=== PATIENT | female | born 1950 | race Caucasian/White ===

== ENCOUNTER 2021-01-04 08:38 | Inpatient (IN) ==
--- NOTE | 2020-12-19 14:39 | PAT Medication Instructions ---
Medication Instructions Date of Service December 19, 2020 Home Medications atorvastatin 10 mg PO PM cholecalciferol (vitamin D3) [Vitamin D3] 50 mcg PO QAM cyanocobalamin (vitamin B-12) 2,500 mcg PO QAM lisinopril 10 mg PO QAM metoprolol succinate 50 mg PO QAM multivitamin 1 tab PO QAM acetaminophen [Tylenol Extra Strength] 500 mg PO QID PRN DO NOT take the morning of surgery cholecalciferol (vitamin D3) [Vitamin D3] 50 mcg PO QAM cyanocobalamin (vitamin B-12) 2,500 mcg PO QAM lisinopril 10 mg PO QAM multivitamin 1 tab PO QAM Take morning of surgery With a small sip of water, OTHERWISE NOTHING TO EAT OR DRINK AFTER MIDNIGHT: metoprolol succinate 50 mg PO QAM acetaminophen [Tylenol Extra Strength] 500 mg PO QID PRN (okay to take up to 4 hours prior to surgery if needed) Take evening before surgery atorvastatin 10 mg PO PM acetaminophen [Tylenol Extra Strength] 500 mg PO QID PRN (if needed) Other Notes If you have any questions please call us at [phone] or [phone] or [phone] or [phone]
--- NOTE | 2020-12-21 11:23 | Anesthesiology Consultation ---
Date of Service December 21, 2020 Assessment & Plan (1) Encounter for pre-operative examination: - COVID screening: Per assessment on 12/21: Travel screen negative, no known COVID-19 positive contacts or current COVID-19 related symptoms. Surgeon arrangi ng preop COVID testing. Awaiting results. - PCP office visit: 12/20/20: "Per Revised Cardiac Risk Index for Pre-Operative Risk, patient is Class I Risk and has a 3.9% chance of having a cardiac event within 30 days of surgery. Patient is low risk and pending acceptable labs tomorrow may proceed with surgery." Chart Review Chart Review: Acceptable Risk for Surgery (pending most recent cardiology office visit note) and Patient seen in Pre Admission Testing Teaching & Discussion Pre-Anesthesia Teaching/Discussion Notes: Instructed NPO after midnight before surgery,except medications with 15 cc of water. Medication instructions provided according to the PAT guidelines. History Surgery Operation Date: 01/04/21 07:45 Proposed Procedures p L1-L2 and L4-L5 Decompression, L4-L5 Fusion, Spinal Cord Monitoring - Edilson Fleming DO Height/Weight Height: 5 ft 1 in Weight: 88.451 kg Allergies Allergy/AdvReac Type Severity Reaction Status Date / Time No Known Allergies Allergy Verified 12/03/20 08:55 Medications Home Medications Medication Instructions Recorded Confirmed Last Taken atorvastatin 10 mg PO PM 06/08/20 12/03/20 07/12/20 06:15 cholecalciferol (vitamin D3) 50 mcg PO QAM 06/08/20 12/03/20 07/05/20 [Vitamin D3] cyanocobalamin (vitamin B-12) 2,500 mcg PO QAM 06/08/20 12/03/20 07/05/20 lisinopril 10 mg PO QAM 06/08/20 12/03/20 07/05/20 metoprolol succinate 50 mg PO QAM 06/08/20 12/03/20 07/12/20 06:15 multivitamin 1 tab PO QAM 06/08/20 12/03/20 07/05/20 acetaminophen [Tylenol Extra 500 mg PO QID PRN 09/07/20 12/03/20 Unknown Strength] Past Medical History Medical History Arthritis Hyperlipidemia Hypertension Sleep apnea "mild"/no device Urinary, incontinence, stress female Exercise / Class Metabolic Activity III < 4 Walking/Shop/Light housework (+ walker) Past Family History Family History Mother Family history of diabetes mellitus Past Surgical History Surgical History History of bilateral tubal ligation History of cardiac cath [place] [place] no stents History of carpal tunnel release R/L History of colonoscopy History of hysterectomy + oophorectomy History of surgery on arm right > mass (benign) History of tonsillectomy History of tooth extraction Hx of cholecystectomy Past Anesthesia History No Hx of Anesthesia Complications and No Family Hx of Anesthesia Complications History of PONV No Hx of PONV and Hx of Motion Sickness (occasional) Social History Smoking Status: Never smoker Do You Dip or Chew Tobacco: No Hx Alcohol Use: Yes Alcohol type: hard liquor alcohol intake frequency: holidays/special occasions only Hx Substance Use: No substance use type: does not use Review of Systems Patient denies chest pain, shortness of breath, dyspnea on exertion, joint pain, reflux, cough, wheezing, palpitations. Physical Exam Vital Signs VITALS BP 153/91 P 65 TEMP 98.1 SP02 98%RA RESP 16 PHYSICAL Decreased cervical extension Full TMJ range of motion. TMD 3.5 finger breaths Mallampati Score 3 Dentition: missing molars Lungs: clear throughout to auscultation Cardiac: regular rate and rhythm, no murmurs noted Spine: normal Carotid arteries: negative bruit Extremities: no edema Testing Laboratory Results 12/21/20 11:56 12/21/20 11:56 PT 9.9 Seconds (9.0-12.0) 12/21/20 11:56 INR 1.0 (0.9-1.1) 12/21/20 11:56 APTT 26.6 Seconds (21.0-31.0) 12/21/20 11:56 Urine Color Yellow 12/21/20 11:56 Urine Appearance Clear (Clear) 12/21/20 11:56 Urine pH 5.0 (4.5-7.5) 12/21/20 11:56 Ur Specific [place] 1.011 (1.000-1.030) 12/21/20 11:56 Urine Protein Negative (Negative) 12/21/20 11:56 Urine Glucose (UA) Negative (Negative) 12/21/20 11:56 Urine Ketones Negative (Negative) 12/21/20 11:56 Urine Nitrite Negative (Negative) 12/21/20 11:56 Ur Leukocyte Esterase 1+ (Negative) H 12/21/20 11:56 Urine RBC 0-4 /hpf (0-4) 12/21/20 11:56 Urine WBC 5-10 /hpf (0-5) H 12/21/20 11:56 Ur Epithelial Cells >30 /lpf (0-5) H 12/21/20 11:56 Blood Type A Positive 12/21/20 11:56 Antibody Screen NEGATIVE 12/21/20 11:56 Electrocardiogram Date: 06/12/20 Findings: + NSR @ (73) Chest X-Ray Date: 06/12/20 Findings: + NAD There is bibasilar scarring/atelectasis. Stress Test Date: 02/12/17 Type: exercise Abnormal stress echo consistent with inferior and apical ischemia. 4.4 METS. 99% MPHR. LVEF 70%. Grade I DD. No significant valvular disease. Subsequent cardiac cath done 03/16/17* Cardiac Catheterization Date: 03/16/17 No [place] CAD. No aortic stenosis. Systemic arterial hypertension. Outpatient BP control rec'd.
[2020-12-21 12:23] LABS: Basophils # (auto) 0.04 K/uL (0-0.2); Basophils % (auto) 0.5 %; Eosinophils # (auto) 0.09 K/uL (0-0.5); Eosinophils % (auto) 1.2 %; Hematocrit (blood only) 41.3 % (37-47); Hemoglobin 14.2 g/dL (12.0-16.0); Immature Granulocytes # (auto) 0.01 K/uL (0.00-0.02); Immature Granulocytes % (auto) 0.1 %; Lymphocytes # (auto) 1.25 K/uL (1.2-3.4); Lymphocytes % (auto) 16.4 %; Mean Corpuscular Hemoglobin 31.1 pg (25-34); Mean Corpuscular Hgb Conc 34.4 g/dL (32-36); Mean Corpuscular Volume 90.4 fL (80-100); Mean Platelet Volume 10.5 fL (7.4-10.4); Monocytes # (auto) 0.71 K/uL (0.11-0.59); Monocytes % (auto) 9.3 %; Neutrophils % (auto) 72.5 %; Platelet Count 276 K/uL (130-400); RDW Coefficient of Variation 14.1 % (11.5-14.5); RDW Standard Deviation 46.8 fL (36.4-46.3); Red Blood Count 4.57 M/uL (4.2-5.4)
[2020-12-21 12:26] LABS: Appearance Urine Clear (Clear); Bilirubin Urine Negative (Negative); Blood Urine Negative (Negative); Color Urine Yellow; Glucose Urine UA Negative (Negative); Ketones Urine Negative (Negative); Leukocyte Esterase Urine 1+ (Negative); Nitrite Urine Negative (Negative); Protein Urine Negative (Negative); Specific Gravity Urine 1.011 (1.000-1.030); Urobilinogen Urine Negative (Negative)
[2020-12-21 12:36] LABS: Partial Thromboplastin Time 26.6 Seconds (21.0-31.0); Prothrombin Time 9.9 Seconds (9.0-12.0)
[2020-12-21 12:42] LABS: BUN Creatinine Ratio 24.6 (10-20); Calcium 9.5 mg/dl (8.5-10.1); Creatinine Clr Calc Pharmacy 49.4 ml/min; Est GFR (African American) 62.2; Est GFR (Non-African American) 53.6; Potassium 3.8 mmol/L (3.5-5.1)
[2020-12-21 13:49] LABS: Epithelial Cell Urine >30 /lpf (0-5)
[2020-12-21 13:50] LABS: Bacteria Urine 1+ (Negative); RBC Urine 0-4 /hpf (0-4)
[~2021-01-04 08:38] MED LIST: ACETAMINOPHEN 500 MG TAB PO SCH; CeleBREX 200 MG CAP PO SCH; GLYCOPYRROLATE 0.2 MG/ML VIAL ONE; LIDOCAINE HCL 2% 2 ML VIAL/AMP(20MG/ML) INFIL ONE; LR 15ML/HR IV SCH; MIDAZOLAM HCL 1 MG/ML 2ML VIAL ONE; NEOSTIGMINE METHYLSULFATE 1 MG/ML 10ML VIAL ONE; ONDANSETRON INJ 2 MG/ML 2 ML VIAL ONE; PROPOFOL IV EMULSION 10 MG/ML 20 ML VIAL IV ONE; ROCURONIUM BROMIDE 10 MG/ML 5 ML VIAL IV ONE; SUCCINYLCHOLINE 100MG/5ML SYR IV ONE; ceFAZolin 2000MG 2,000 MG/15 ML SYR IV SCH; fentaNYL citrate 100 MCG/2 ML VIAL ONE
[2021-01-04] MEDS ORDERED: GABAPENTIN 300 MG CAP ONE (08:58)
[2021-01-04] MEDS ORDERED: LABETALOL HCL IV 5 MG/ML 20ML IV PRN (09:44)
[2021-01-04] MEDS ORDERED: ePHEDrine sulfate 50 MG/ML AMP IV PRN (09:44)
[2021-01-04] MEDS ORDERED: PHENYLEPHRINE 100MCG/ML 5ML SYR IV PRN (09:44)
[2021-01-04] MEDS ORDERED: HYDROmorphone INJ 1 MG/ML SYRINGE IV PRN ×2 (09:44→14:20)
[2021-01-04] MEDS ORDERED: ATROPINE SULFATE 0.1 MG/ML 10ML SYR IV PRN (09:44)
[2021-01-04] MEDS ORDERED: fentaNYL citrate 100 MCG/2 ML VIAL IV PRN (09:44)
[2021-01-04] MEDS ORDERED: ONDANSETRON INJ 2 MG/ML 2 ML VIAL IV PRN ×2 (09:44→14:20)
[2021-01-04] MEDS ORDERED: MEPERIDINE HCL 25 MG/ML CARP/VIAL IV PRN (09:44)
--- NOTE | 2021-01-04 09:47 | History & Physical Report ---
Date of Service January 04, 2021 Assessment & Plan (1) Neurogenic claudication due to lumbar spinal stenosis: Admission and Anticipated Discharge Date Admission Date: L1-L2 and L4-L5 decompression, L4-L5 fusion History of Present Illness Chief Complaint: Back and bilateral leg pain Primary Care Provider: Chiquita Emmanuel PA-C This is a 71-year-old female presents with chronic persistent back and bilateral leg pain. Failing course of nonoperative care is here for surgical invention. Allergies Allergy/AdvReac Type Severity Reaction Status Date / Time No Known Allergies Allergy Verified 01/04/21 09:11 Home Medications Medication Instructions Recorded Confirmed Type atorvastatin 10 mg PO PM 06/08/20 01/04/21 History cholecalciferol (vitamin D3) 50 mcg PO QAM 06/08/20 01/04/21 History [Vitamin D3] cyanocobalamin (vitamin B-12) 2,500 mcg PO QAM 06/08/20 01/04/21 History lisinopril 10 mg PO QAM 06/08/20 01/04/21 History metoprolol succinate 50 mg PO QAM 06/08/20 01/04/21 History multivitamin 1 tab PO QAM 06/08/20 01/04/21 History acetaminophen [Tylenol Extra 500 mg PO QID PRN 09/07/20 01/04/21 History Strength] Past Med/Surg History Medical History (Updated 01/04/21 @ 09:47 by Edilson Fleming DO) Arthritis Hyperlipidemia Hypertension Obesity Sleep apnea "mild"/no device Urinary, incontinence, stress female Surgical History History of bilateral tubal ligation History of cardiac cath 2016 ([facility] – [place] > no stents History of carpal tunnel release R/L History of colonoscopy History of hysterectomy + oophorectomy History of surgery on arm right > mass (benign) History of tonsillectomy History of tooth extraction Hx of cholecystectomy Family History Mother Family history of diabetes mellitus Social History Smoking Status: Never smoker Second Hand Exposure: Yes (sister smokes); Do You Dip or Chew Tobacco: No; Tobacco Cessation Education Requested by Patient: No Hx Alcohol Use: Yes Alcohol type: hard liquor Hx Substance Use: No Preferred Language: Liberian Communication Ability: Effective Centerless Grinder Tender Required: No Beliefs That Will Affect Care: None Current Living Situation: Family Current Living Situation Comment: SISTER LIVES W PT Other Information That Helps Us Care for You: No Feels Safe at Home: Yes Safety Concerns: Feels Safe At This Time Assistive Devices: Glasses and Walker Physical Exam Physical Exam: Patient is alert and oriented Heart regular in rhythm Lungs clear to auscultation Results & Data ([facility]) Vital Signs (Past 12 Hours) Vital Signs Temp Pulse Resp BP Pulse Ox 01/04/21 09:24 37.1 C 88 20 137/85 96
--- NOTE | 2021-01-04 09:47 | History & Physical Bridge Note ---
Date of Service January 04, 2021 History & Physical Bridge Note I have examined the patient, reviewed the History & Physical and in the interval since the performance of the History & Physical I have noted the following changes of clinical significance: no changes noted
[2021-01-04] MEDS ORDERED: BACITRACIN INJ 50,000 UNIT VIAL ONE (10:01)
[2021-01-04] MEDS ORDERED: BUPIVACAINE/EPINEPHRINE 0.5% MPF 1:200,000 30 ML VIAL ONE (10:01)
[2021-01-04] MEDS ORDERED: PHENYLEPHRINE 100MCG/ML 5ML SYR ONE (10:50)
[2021-01-04] MEDS ORDERED: DEXAMETHASONE SOD INJ 4 MG/ML VIAL ONE (10:50)
[2021-01-04] MEDS ORDERED: fentaNYL citrate 100 MCG/2 ML VIAL ONE ×2 (11:07→12:45)
[2021-01-04] MEDS ORDERED: FLOSEAL HEMOSTATIC MATRIX 10ML TOP ONE (11:24)
--- NOTE | 2021-01-04 12:36 | Operative Report ---
Post Operative Report Pre & Post Diagnosis Operation Date: 01/04/21 10:10 Pre-Op Diagnosis: Spinal Stenosis, Lumbar Region with Neurogenic claudication Post-Op Diagnosis: Spinal Stenosis, Lumbar Region with Neurogenic claudication I identified the patient and participated in the time-out.: Yes Procedure Operation Date: 01/04/21 10:10 Actual Procedures #1 Lumbar decompression with bilateral medial facetectomies and foraminotomies L1-L2, L3-L4 and L4-L5. #2 posterior spinal fusion L4-L5 per #3 placed posterior instrumentation L4-L5 per #4 interbody fusion L4-L5. #5 placement peek cage 10 x 22 mm at L4-L5. #6 placement locally harvested morselized autograft in the posterior lateral gutters. #7 placement infuse collagen sponge, master graft in the posterior lateral gutters and I factor interbody space. Surgeon Edilson Fleming, DO Academic Assistant Ger River Estimated Blood Loss 200 Findings Consistent with Post-Op Diagnosis The patient is 5 foot 1 inches tall weighing over 87 kg with a BMI in excess of 36. The patient's body mass did add significant technical difficulty requiring her deepest retractors longus instruments in order to perform her procedure. This had at least 50% increase to the operative time. Specimens None Indications This is a 71-year-old female who presents with above-mentioned diagnosis after failing stents course of nonoperative care she is here for surgical invention. Description of Procedure Patient was met with identified informed consent obtained. Patient was then taken to the operative suite underwent ablation placed in prone position the Paulo table total spine frame. All bony prominences well-padded eyes inspected to ensure no external pressure placed upon the bed at this point lumbar spine was prepped and draped in a sterile fashion. Sharp dissection with the assistance pericardial performed down to and exposing the lamina and interlaminar space at L1-L2 as well as the lamina and transverse processes of L4 and L5 bilaterally. From caudal cephalad fashion complete laminectomy of L4 pa rtial laminectomy L3 was performed including bilateral medial facetectomies and foraminotomies addressing severe spinal stenosis. Pedicle screws then placed in L4 and L5 bilaterally with assistance of fluoroscopy the proper sized mercedes placed and locked. By way of a transforaminal approach on the left complete discectomy of L4-L5 was performed endplates curetted to subcortical bleeding bone and a 10 x 22 mm peek cage filled with I factor tapped in position. I then proceeded to L1-L2 level. A complete laminectomy of L1 was performed occluding bilateral medial facetectomies foraminotomies addressing severe spinal stenosis. The incisions were then copiously irrigated. The transverse processes of L4 and L5 burred to subcortical bleeding bone. Local autograft combined with infuse and master graft was placed in the posterior gutters. 15 round ELEN drain inserted. The incision was then closed with 1 Vicryl to fascia 2-0 Vicryl subcutaneous and 4 Monocryl for final skin closure. Steri-Strip sterile dressings placed. Please note spinal cord monitoring was utilized at the procedure no changes noted. Lastly Ger River was present at the entire surgery involved the patient positioning complex portions of the surgery and final skin closure. I attest to the content of the Intraoperative Record and any orders documented therein. Any exceptions are noted below.
--- NOTE | 2021-01-04 12:42 | Fluoroscopy Report ---
FL lumbar spine 2-3V CLINICAL HISTORY: L1-L2 L4-L5 DECOMPRESSION L4-L5 FUSION COMPARISON STUDY: None. FLUOROSCOPY TIME: 27 seconds. FLUOROSCOPIC IMAGES: 2 FINDINGS: Fluoroscopy was provided during L4-L5 discectomy with interbody spacer placement. Posterior decompression is noted. There are bilateral pedicle screws at the L4 and L5 levels. IMPRESSION: Fluoroscopy provided during multilevel posterior decompression and L4-L5 discectomy and bilateral pedicle screw fusion. ACT 112: Negative or not required by law. Electronically signed by: Ran Salomon M.D. 01/04/2021 12:41 PM
[2021-01-04] MEDS ORDERED: KETOROLAC 30 MG/ML VIAL ONE (12:47)
--- NOTE | 2021-01-04 13:36 | Anesthesiology Progress Note ---
Date of Service January 04, 2021 Anesthesia Post Procedure Vital Signs Vital Signs: Temp Pulse Pulse Resp BP Pulse Ox 01/04/21 13:20 61 14 142/79 H 94 01/04/21 13:10 60 12 128/75 94 01/04/21 13:02 36.3 C L 88 22 143/83 H 97 01/04/21 09:24 37.1 C 88 20 137/85 96 Transfer of Care Handoff Completed per policy Notes Mental Status: alert / awake / arousable Patient Amnestic to Procedure: Yes Nausea / Vomiting: adequately controlled Pain: adequately controlled Airway Patency, RR, SpO2: stable & adequate BP & HR: stable & adequate Hydration State: stable & adequate Anesthetic Complications: no major complications apparent and Pt Satisfied with anesthetic care
[2021-01-04] MEDS ORDERED: hydrOXYzine HCl 25 MG TAB PO PRN (14:20)
[2021-01-04] MEDS ORDERED: MAGNESIUM HYDROXIDE SUSP 30 ML UDC PO PRN (14:20)
[2021-01-04] MEDS ORDERED: ACETAMINOPHEN 1,000 MG/100 ML VIAL IV PRN (14:20)
[2021-01-04] MEDS ORDERED: DO NOT ADMINISTER FLU VACCINE PRN (14:20)
[2021-01-04] MEDS ORDERED: LORazepam 0.5 MG TAB PO PRN (14:20)
[2021-01-04] MEDS ORDERED: SOD PHOSPHATE/SOD BIPHOSPHATE ENEMA 132 ML BTL PR PRN (14:20)
[2021-01-04] MEDS ORDERED: FAMOTIDINE 20 MG TAB PO PRN (14:20)
[2021-01-04] MEDS ORDERED: DO NOT ADMINISTER PNEUMOCOCCAL VACCINE PRN (14:20)
[2021-01-04] MEDS ORDERED: NALOXONE HCL 0.4 MG/1 ML VIAL/CARP IV PRN (14:20)
[2021-01-04] MEDS ORDERED: traMADol HCL 50 MG TABLET PO PRN (14:20)
[2021-01-04] MEDS ORDERED: LORazepam 0.5 MG/1 ML VIAL IV PRN (14:20)
[2021-01-04] MEDS ORDERED: METOCLOPRAMIDE HCL INJ 5 MG/ML 2 ML VIAL IV PRN (14:20)
[2021-01-04] MEDS ORDERED: diphenhydrAMINE Capsule 25 MG CAP PO PRN (14:20)
[2021-01-04] MEDS ORDERED: HYDROmorphone INJ 0.5 MG/0.5 ML SYR IV PRN (14:20)
[2021-01-04] MEDS ORDERED: ONDANSETRON 4 MG OD TAB PO PRN (14:20)
[2021-01-04] MEDS ORDERED: ALUMINUM/MAGNESIUM SUSP 30 ML UDC PO PRN (14:20)
[2021-01-04] MEDS ORDERED: PROMETHAZINE HCL 12.5 MG in SODIUM CHLORIDE 0.9% 50 ML IV PRN (14:20)
[2021-01-04] MEDS ORDERED: bisacodyL 10 MG SUPP PR PRN (14:20)
--- NOTE | 2021-01-04 14:47 | Hospitalist Consultation ---
Date of Consultation January 04, 2021 Assessment & Plan (1) S/P spinal surgery: This is a 71yo F with a PMH of HTN, dyslipidemia, mild SILVIA not on CPAP, history of sacral wound and other medical problems listed below who is POD#0 s/p lumbar decompression L1-L2, L3-L4 and L4-L5 and fusion L4-L5 by Dr. Fleming. POD#0 s/p lumbar decompression L1-L2, L3-L4 and L4-L5 and fusion L4-L5 by Dr. Fleming Pt is doing well post-operatively Per ortho for pain control, wound care, anticoagulation and activities Monitor H&H (pre-op hgb 14.2, EBL 300 ml, ELEN output 65ml to date) Continue incentive spirometry, PT/OT when appropriate (2) Hypertension: Normotensive. Continue metoprolol succinate with hold parameters. Holding lisinopril until BMP in AM (3) Hyperlipidemia: Continue statin (4) Sacral wound: History of sacral wound present prior to admission; recently released from wound care Sacral area erythematous on exam today with small excoriated area- no drainage. Wound care consult (5) Sleep apnea: Does not use CPAP. Continuous pulse ox, supplemental O2 PRN PCP: Amari Hutchison Dispo: Per primary service Patient seen in collaboration with Dr. Drew. Please see addendum. Supervising Physician Co-Signing Physician Notes Patient is a 71-year-old female with history of hypertension, dyslipidemia, obstructive sleep apnea and other medical problems was seen and examined postop after having lumbar decompression, fusion surgery by Dr. Fleming for lumbar spinal stenosis with neurogenic claudication. Patient had transient dizziness associated with nausea postop but later improved with antiemetics. She denies any chest pain, shortness of breath, abdominal pain. Pain at surgical site is controlled. On exam patient is obese, no apparent distress, normocephalic atraumatic, lungs are clear to auscultation, normal breath sounds, S1-S2, no murmur, no pedal edema, abdomen soft, nontender, normal bowel sounds, back--surgical site in dressing,+ drain, alert, awake, oriented, grossly no focal neural deficits. Lumbar decompression, fusion surgery POD#0. Continue incentive spirometry, monitor CBC for postop anemia. Continue bowel regimen, PT OT as able. Activity, wound care, disposition as per primary team. Agree with consulting wound care nurse for sacral wound management. Continue home medications for hypertension. Blood pressure stable. I personally reviewed the record. Patient is interviewed and examined at bedside. Patient's care is coordinated with Sonam Zuniga PA-C. Please refer to the documentation above for details of patient's presentation and for discussion of other issues. History of Present Illness Reason for Consultation: post op med mgmt Attending Physician: Edilson Fleming DO History of Present Illness This is a 71yo F with a PMH of HTN, dyslipidemia, mild SILVIA not on CPAP, history of sacral wound and other medical problems listed below who is POD#0 s/p lumbar decompression L1-L2, L3-L4 and L4-L5 and fusion L4-L5 by Dr. Fleming. Feeling sandoval seated after surgery but improved after drinking some broth. No vomiting. Nurse getting antiemetic. Minimal surgical site discomfort. No pain or paresthesias in bilateral lower extremities. History of sacral wound but recently released from wound care. Denies any drainage, pain, fever or chills. Transient dizziness following surgery but not currently. No chest pain, palpitations, SOB, abdominal pain, dysuria, diarrhea or constipation. Allergies Allergy/AdvReac Type Severity Reaction Status Date / Time No Known Allergies Allergy Verified 01/04/21 09:11 Home Medications Medication Instructions Recorded Confirmed Type atorvastatin 10 mg PO PM 06/08/20 01/04/21 History cholecalciferol (vitamin D3) 50 mcg PO QAM 06/08/20 01/04/21 History [Vitamin D3] cyanocobalamin (vitamin B-12) 2,500 mcg PO QAM 06/08/20 01/04/21 History lisinopril 10 mg PO QAM 06/08/20 01/04/21 History metoprolol succinate 50 mg PO QAM 06/08/20 01/04/21 History multivitamin 1 tab PO QAM 06/08/20 01/04/21 History acetaminophen [Tylenol Extra 500 mg PO QID PRN 09/07/20 01/04/21 History Strength] Patient History Medical History (Updated 01/04/21 @ 15:31 by Sonam Zuniga PA-C) Arthritis Hyperlipidemia Hypertension Obesity Sleep apnea "mild"/no device Urinary, incontinence, stress female Surgical History (Updated 01/04/21 @ 15:31 by Sonam Zuniga PA-C) History of bilateral tubal ligation History of cardiac cath 2017 ([facility] [place] > no stents History of carpal tunnel release R/L History of colonoscopy History of hysterectomy + oophorectomy History of surgery on arm right > mass (benign) History of tonsillectomy History of tooth extraction Hx of cholecystectomy Family History (Updated 01/04/21 @ 14:55 by Sonam Zuniga PA-C) Mother Family history of diabetes mellitus Other Heart disease Social History Smoking Status: Never smoker Second Hand Exposure: Yes (sister smokes); Do You Dip or Chew Tobacco: No; Tobacco Cessation Education Requested by Patient: No Hx Alcohol Use: Yes Alcohol type: hard liquor Hx Substance Use: No Preferred Language: Tajik Communication Ability: Effective Shank Cutter Required: No Beliefs That Will Affect Care: None Current Living Situation: Family Current Living Situation Comment: SISTER LIVES W PT Other Information That Helps Us Care for You: No Feels Safe at Home: Yes Safety Concerns: Feels Safe At This Time Assistive Devices: Glasses and Walker Review of Systems Review of Systems: At least ten systems reviewed and negative except as noted in the HPI. Physical Exam Physical Exam: General Appearance: WD/WN, vitals as above, NAD, sitting up in bed, pleasant, conversing easily Head: normocephalic, atraumatic Eyes: normal inspection, PERRL, conjunctivae normal, anicteric sclerae ENT: external ear and nose normal, oropharynx normal Neck: normal visual inspection, trachea midline, no thyromegaly Respiratory: normal respiratory effort, lungs clear to auscultation, no wheeze, rales, rhonchi. No accessory muscle use Cardiovascular: regular rate, rhythm, no murmur, normal peripheral pulses, no BLE edema Abdomen/GI: normal bowel sounds, soft, nontender, no hepatosplenomegaly Extremities/Musculoskeletal: +Lumbosacral surgical dressing c/d/i. Drain visualized. No cyanosis or clubbing, extremities motor strength 5/5 Neurologic: PERRL, no dysarthria, CN's II-XI intact bilaterally and moves all extremities Psychiatric: A+Ox3, euthymic affect Skin: no rashes, normal color, warm/dry. + Erythema and small area of excoriation above sacrum. No drainage Results & Data Results & Data ([facility]) Vital Signs (Past 12 Hours) Vital Signs Temp Pulse Pulse Resp BP Pulse Ox 01/04/21 14:39 36.6 C 58 L 16 111/71 95 01/04/21 14:00 59 L 17 117/67 94 01/04/21 13:50 36.8 C 62 15 150/80 H 95 01/04/21 13:40 61 12 131/76 94 01/04/21 13:30 60 12 138/75 94 01/04/21 13:20 61 14 142/79 H 94 01/04/21 13:10 60 12 128/75 94 01/04/21 13:02 36.3 C L 88 22 143/83 H 97 01/04/21 09:24 37.1 C 88 20 137/85 96 Laboratory Results Pertinent pre-op labs (12/21/20): WBC 7.60 HGB 14.2 PLT 276 CR 1.04 GFR 53.6
[2021-01-04] MEDS: SODIUM CHLORIDE 0.9% 1000ML 1,000 ML IV SCH (15:31)
[2021-01-04 16:32] LABS: Appearance Urine Cloudy (Clear); Bacteria Urine Automated Negative (Negative); Blood Urine Negative (Negative); Color Urine Orange; Epithelial Cell Urine Auto 20-30 /lpf (0-5); Glucose Urine UA Negative (Negative); Ketones Urine Trace (Negative); Leukocyte Esterase Urine Negative (Negative); Nitrite Urine Positive (Negative); Protein Urine Negative (Negative); RBC Urine Automated 0-4 /hpf (0-4); Specific Gravity Urine 1.022 (1.000-1.030); Urobilinogen Urine Negative (Negative)
[2021-01-04 16:35] LABS: Bilirubin Urine 1+ (Negative)
[2021-01-04 16:50] LABS: Uric Acid Crystals Urine Present (None Prsent)
[2021-01-04] MEDS: ceFAZolin 2000MG 2,000 MG/15 ML SYR IV SCH (18:20)
[2021-01-04] MEDS: ATORVASTATIN 10 MG TAB PO SCH (20:35)
[2021-01-04] MEDS: DOCUSATE SODIUM/SENNA 50/8.6MG TAB PO SCH (20:36)
[2021-01-05] MEDS: SODIUM CHLORIDE 0.9% 1000ML 1,000 ML IV SCH (01:21)
[2021-01-05] MEDS: ceFAZolin 2000MG 2,000 MG/15 ML SYR IV SCH (01:21)
[2021-01-05] MEDS: POLYETHYLENE (MIRALAX) 17 GM PACK PO SCH ×3 (06:01→17:23)
[2021-01-05 06:50] LABS: Basophils # (auto) 0.02 K/uL (0-0.2); Basophils % (auto) 0.1 %; Eosinophils # (auto) 0.01 K/uL (0-0.5); Eosinophils % (auto) 0.1 %; Hematocrit (blood only) 37.2 % (37-47); Hemoglobin 12.7 g/dL (12.0-16.0); Immature Granulocytes # (auto) 0.05 K/uL (0.00-0.02); Immature Granulocytes % (auto) 0.3 %; Lymphocytes # (auto) 1.16 K/uL (1.2-3.4); Lymphocytes % (auto) 6.3 %; Mean Corpuscular Hemoglobin 30.9 pg (25-34); Mean Corpuscular Hgb Conc 34.1 g/dL (32-36); Mean Corpuscular Volume 90.5 fL (80-100); Monocytes % (auto) 8.7 %; Neutrophils # (auto) 15.57 K/uL (1.4-6.5); Neutrophils % (auto) 84.5 %; Platelet Count 266 K/uL (130-400); RDW Coefficient of Variation 13.6 % (11.5-14.5); RDW Standard Deviation 45.4 fL (36.4-46.3); Red Blood Count 4.11 M/uL (4.2-5.4); White Blood Count 18.41 K/uL (4.8-10.8)
[2021-01-05 07:16] LABS: BUN Creatinine Ratio 20.9 (10-20); Calcium 8.3 mg/dl (8.5-10.1); Creatinine Clr Calc Pharmacy 47.6 ml/min; Est GFR (African American) 60.3; Potassium 3.7 mmol/L (3.5-5.1)
--- NOTE | 2021-01-05 08:17 | Orthopedic Progress Note ---
Date of Service January 05, 2021 Assessment & Plan (1) Neurogenic claudication due to lumbar spinal stenosis: Patient is doing well postoperative day 1 status post lumbar fusion. We will start physical therapy today. Continue with pain control. Maintain ELEN drain and dressing. DVT prophylaxis is in the form of teds and SCDs. Admission and Anticipated Discharge Date Admission Date: January 04, 2021 Supervising Physician Co-Signing Physician Notes Dr. Edilson Fleming Subjective Patient is postoperative day 1 decompression L1-2, L3-4, L4-5 with instrumented fusion of L4-5. She had an uneventful evening. ELEN drain output last shift was 40 cc. H&H is morning are 12.7 and 37.2 respectively. Denies radicular leg pain. Back pain controlled. No other complaints. Review of Systems Review of Systems: All systems reviewed & are unremarkable except as noted in HPI & below Physical Exam Physical Exam: Alert and oriented x3. No acute distress. Lumbar dressing is clean dry and intact. Strength is 5 5 bilateral EHL, dorsiflexion, plantarflexion, quadriceps, hamstrings Calves soft nontender bilaterally. ROD hose and SCDs intact. Constitutional: WD/WN, vitals as above Eyes: normal visual jarrett by confrontation ENMT: external ear and nose normal, oropharynx normal Neck: normal visual inspection Respiratory: normal respiratory effort Cardiovascular: Extremities: normal capillary refill Chest (Breasts): Chest: normal inspection of chest Gastrointestinal (Abdomen): Inspection/Auscultation: abdomen normal to inspection Musculoskeletal: Extremities: extremities normal to inspection and strength 5/5 throughout Skin: no rashes, warm and dry Neurologic: normal touch/pain/proprioception and moves all extremities Psychiatric: A+Ox3, euthymic affect Results & Data ([facility]) Vital Signs (Past 12 Hours) Vital Signs Temp Pulse Resp BP Pulse Ox 01/05/21 07:04 36.7 C 71 18 102/62 93 01/05/21 03:47 36.6 C 63 16 105/64 95 01/04/21 22:31 36.9 C 64 16 102/65 94
[2021-01-05] MEDS: METOPROLOL SUCC 50MG EXT REL TAB PO SCH (09:25)
[2021-01-05] MEDS: MULTIVITAMIN TAB PO SCH (09:25)
[2021-01-05] MEDS: CHOLECALCIFEROL 1,000 UNITS 25 MCG TAB PO SCH (09:25)
[2021-01-05] MEDS: CYANOCOBALAMIN (VITAMIN B-12) 2,500 MCG TAB.SUBL SL SCH (09:26)
[2021-01-05] MEDS: DOCUSATE SODIUM/SENNA 50/8.6MG TAB PO SCH (20:01)
[2021-01-05] MEDS: ATORVASTATIN 10 MG TAB PO SCH (20:03)
[2021-01-05] MEDS: ACETAMINOPHEN 500 MG TAB PO PRN (20:03)
[2021-01-06] MEDS: oxyCODONE HCL IR 5 MG TAB (IMMEDIATE RELEASE) PO PRN (04:45)
[2021-01-06 08:27] LABS: Basophils # (auto) 0.03 K/uL (0-0.2); Basophils % (auto) 0.2 %; Eosinophils # (auto) 0.13 K/uL (0-0.5); Eosinophils % (auto) 0.9 %; Hematocrit (blood only) 36.1 % (37-47); Hemoglobin 12.5 g/dL (12.0-16.0); Immature Granulocytes # (auto) 0.03 K/uL (0.00-0.02); Immature Granulocytes % (auto) 0.2 %; Lymphocytes # (auto) 1.19 K/uL (1.2-3.4); Lymphocytes % (auto) 8.5 %; Mean Corpuscular Hemoglobin 31.6 pg (25-34); Mean Corpuscular Hgb Conc 34.6 g/dL (32-36); Mean Corpuscular Volume 91.2 fL (80-100); Mean Platelet Volume 10.7 fL (7.4-10.4); Monocytes # (auto) 1.14 K/uL (0.11-0.59); Monocytes % (auto) 8.1 %; Neutrophils # (auto) 11.49 K/uL (1.4-6.5); Neutrophils % (auto) 82.1 %; Platelet Count 269 K/uL (130-400); RDW Coefficient of Variation 13.6 % (11.5-14.5); RDW Standard Deviation 45.3 fL (36.4-46.3); Red Blood Count 3.96 M/uL (4.2-5.4); White Blood Count 14.01 K/uL (4.8-10.8)
[2021-01-06] MEDS: MULTIVITAMIN TAB PO SCH (08:40)
[2021-01-06] MEDS: CYANOCOBALAMIN (VITAMIN B-12) 2,500 MCG TAB.SUBL SL SCH (08:40)
[2021-01-06] MEDS: CHOLECALCIFEROL 1,000 UNITS 25 MCG TAB PO SCH (08:40)
[2021-01-06] MEDS: METOPROLOL SUCC 50MG EXT REL TAB PO SCH (08:41)
--- NOTE | 2021-01-06 09:34 | Orthopedic Progress Note ---
Date of Service January 06, 2021 Assessment & Plan (1) Neurogenic claudication due to lumbar spinal stenosis: She is doing well making progress. We will continue with physical therapy today. Maintain ELNE drain. Continue with pain control. DVT prophylaxis is in the form of teds and SCDs. Hopefully be able to discharge to rehab facility within next 24 to 48 hours. Admission and Anticipated Discharge Date Admission Date: January 04, 2021 Supervising Physician Co-Signing Physician Notes Dr. Edilson Fleming Subjective Patient is postoperative day 2. She is doing well. She is had a bowel movement. Back pain is controlled. Denies radicular leg pain. ELEN drain output last shift was 30 cc. Yesterday in physical therapy she was ambulating roughly 40 feet. She is hoping to be discharged to rehab center within the next 24 to 48 hours. Review of Systems Review of Systems: All systems reviewed & are unremarkable except as noted in HPI & below Physical Exam Physical Exam: Alert and oriented x3. Sitting in a chair in no acute distress. Lumbar dressing is clean dry and intact. ELEN drain is intact and functioning. Calf soft nontender bilaterally. Strength is 5 5 bilateral EHL, dorsiflexion, plantarflexion, quadriceps, hamstrings. Constitutional: WD/WN, vitals as above Eyes: normal visual jarrett by confrontation ENMT: external ear and nose normal, oropharynx normal Neck: normal visual inspection Respiratory: normal respiratory effort Cardiovascular: Extremities: normal capillary refill Chest (Breasts): Chest: normal inspection of chest Gastrointestinal (Abdomen): Inspection/Auscultation: abdomen normal to inspection Musculoskeletal: Extremities: extremities normal to inspection and strength 5/5 throughout Skin: no rashes, warm and dry Neurologic: normal touch/pain/proprioception and moves all extremities Psychiatric: A+Ox3, euthymic affect Results & Data ([facility]) Vital Signs (Past 12 Hours) Vital Signs Temp Pulse Resp BP Pulse Ox 01/06/21 08:39 89 125/67 01/06/21 07:31 37.3 C 77 17 143/78 H 90 01/05/21 23:09 36.9 C 77 16 132/72 93
--- NOTE | 2021-01-06 12:29 | Hospitalist Progress Note ---
Date of Service January 06, 2021 This is a bill for 01/05/2021 Assessment & Plan (1) S/P spinal surgery: This is a 71yo F with a PMH of HTN, dyslipidemia, mild SILVIA not on CPAP, history of sacral wound and other medical problems listed below who is POD#0 s/p lumbar decompression L1-L2, L3-L4 and L4-L5 and fusion L4-L5 by Dr. Fleming. POD#1 s/p lumbar decompression L1-L2, L3-L4 and L4-L5 and fusion L4-L5 by Dr. Fleming Pt is doing well post-operatively Per ortho for pain control, wound care, anticoagulation and activities Monitor H&H (pre-op hgb 14.2, EBL 300 ml, ELEN output 65ml to date) Continue incentive spirometry, PT/OT when appropriate Hemoglobin remains stable at 12.7 (2) Hypertension: Normotensive. Continue metoprolol succinate with hold parameters. Holding lisinopril until BMP in AM Blood pressure extrapleural (3) Hyperlipidemia: Continue statin (4) Sacral wound: History of sacral wound present prior to admission; recently released from wound care Sacral area erythematous on exam today with small excoriated area- no drainage. Wound care consult (5) Sleep apnea: Does not use CPAP. Continuous pulse ox, supplemental O2 PRN PCP: Amari Hutchison Dispo: Per primary service Admission and Anticipated Discharge Date Admission Date: January 04, 2021 Subjective 01/05/2021 The patient was seen and examined in medical floor She has been stable following surgery Minimal back pain but no other significant symptoms Review of Systems Review of Systems: All systems reviewed and are unremarkable except as noted below Physical Exam Physical Exam: Lying in bed comfortably Constitutional: well developed and well nourished; not ill appearing Eyes: PERRL, conjunctivae normal, anicteric sclerae ENMT: external ear and nose normal, oropharynx normal Neck: trachea midline, no thyromegaly Respiratory: no respiratory distress Auscultation: lungs clear to auscultation bilaterally Cardiovascular: Rate/Rhythm: regular rate and regular rhythm Heart Sounds: no murmur Extremities: no edema Gastrointestinal (Abdomen): Inspection/Auscultation: normal bowel sounds; abdomen not distended Percussion/Palpation: abdomen soft; abdomen nontender Musculoskeletal: No acute arthritis in any joint Neurologic: Alert, awake and oriented x3 Results & Data Results & Data ([facility]) Vital Signs (Past 12 Hours) Vital Signs Temp Pulse Resp BP Pulse Ox 01/06/21 08:39 89 125/67 01/06/21 07:31 37.3 C 77 17 143/78 H 90
--- NOTE | 2021-01-06 12:32 | Hospitalist Progress Note ---
Date of Service January 06, 2021 Assessment & Plan (1) S/P spinal surgery: This is a 71yo F with a PMH of HTN, dyslipidemia, mild SILVIA not on CPAP, history of sacral wound and other medical problems listed below who is POD#0 s/p lumbar decompression L1-L2, L3-L4 and L4-L5 and fusion L4-L5 by Dr. Fleming. POD#2 s/p lumbar decompression L1-L2, L3-L4 and L4-L5 and fusion L4-L5 by Dr. Fleming Pt is doing well post-operatively Per ortho for pain control, wound care, anticoagulation and activities Monitor H&H (pre-op hgb 14.2, EBL 300 ml, ELEN output 65ml to date) Continue incentive spirometry, PT/OT when appropriate Hemoglobin remains stable at 12.5 Medically stable (2) Hypertension: Normotensive. Continue metoprolol succinate with hold parameters. Holding lisinopril until BMP in AM Blood pressure extrapleural (3) Hyperlipidemia: Continue statin (4) Sacral wound: History of sacral wound present prior to admission; recently released from wound care Sacral area erythematous on exam today with small excoriated area- no drainage. Wound care consult (5) Sleep apnea: Does not use CPAP. Continuous pulse ox, supplemental O2 PRN PCP: Amari Hutchison Dispo: Per primary service Admission and Anticipated Discharge Date Admission Date: January 04, 2021 Subjective 01/05/2021 The patient was seen and examined in medical floor She has been stable following surgery Minimal back pain but no other significant symptoms 01/06/2021 The patient was seen and examined in medical floor She has been feeling much better today with minimal pain at the back and left thigh Denies any other significant symptoms Review of Systems Review of Systems: All systems reviewed and are unremarkable except as noted below Physical Exam Physical Exam: Sitting on a chair without any acute distress Constitutional: well developed and well nourished; not ill appearing Eyes: PERRL, conjunctivae normal, anicteric sclerae ENMT: external ear and nose normal, oropharynx normal Neck: trachea midline, no thyromegaly Respiratory: no respiratory distress Auscultation: lungs clear to auscultation bilaterally Cardiovascular: Rate/Rhythm: regular rate and regular rhythm Heart Sounds: no murmur Extremities: no edema Gastrointestinal (Abdomen): Inspection/Auscultation: normal bowel sounds; abdomen not distended Percussion/Palpation: abdomen soft; abdomen nontender Musculoskeletal: No acute arthritis in any joint Results & Data Results & Data ([facility]) Vital Signs (Past 12 Hours) Vital Signs Temp Pulse Resp BP Pulse Ox 01/06/21 08:39 89 125/67 01/06/21 07:31 37.3 C 77 17 143/78 H 90 Laboratory Results Short CBC 01/06/21 Range/Units 08:15 WBC 14.01 H (4.8-10.8) K/uL Hgb 12.5 (12.0-16.0) g/dL Hct 36.1 L (37-47) % Plt Count 269 (130-400) K/uL Medications Administered Current Inpatient Medications Acetaminophen (Acetaminophen 500 Mg Tab) 1,000 mg PO Q8H PRN PRN Reason: MILD Pain Scale 1,2,3 & Pre PT Stop: 02/03/21 14:19 Last Admin: 01/05/21 20:03 Dose: 1,000 mg Documented by: Al Hydrox/Mg Hydrox/Simethicone (Aluminum/Magnesium Susp 30 Ml Udc) 30 ml PO Q6H PRN PRN Reason: Dyspepsia Stop: 02/03/21 14:19 Atorvastatin Calcium (Atorvastatin 10 Mg Tab) 10 mg PO PM [facility] Stop: 02/03/21 20:59 Last Admin: 01/05/21 20:03 Dose: 10 mg Documented by: Bisacodyl (Bisacodyl 10 Mg Supp) 10 mg TX DAILY PRN PRN Reason: Constipation Stop: 02/03/21 14:19 Cyanocobalamin (Cyanocobalamin (Vitamin B-12) 2,500 Mcg Tab.Subl) 2,500 mcg SL QAM [facility] Stop: 02/04/21 08:59 Last Admin: 01/06/21 08:40 Dose: 2,500 mcg Documented by: Diphenhydramine HCl (Diphenhydramine Capsule 25 Mg Cap) 25 mg PO Q6H PRN PRN Reason: Allergic Rhinitis/Insomnia Stop: 02/03/21 14:19 Famotidine (Famotidine 20 Mg Tab) 20 mg PO Q12H PRN PRN Reason: Dyspepsia Stop: 02/03/21 14:19 Hydromorphone HCl (Hydromorphone Inj 0.5 Mg/0.5 Ml Syr) 0.5 mg IV Q3H PRN PRN Reason: MOD pain (scale 4-6) & Pre PT Stop: 01/18/21 14:19 Hydromorphone HCl (Hydromorphone Inj 1 Mg/Ml Syringe) 1 mg IV Q3H PRN PRN Reason: severe pain (scale 7-10) Stop: 01/18/21 14:19 Hydroxyzine HCl (Hydroxyzine Hcl 25 Mg Tab) 25 mg PO Q8H PRN PRN Reason: Anxiety Stop: 02/03/21 14:19 Lorazepam (Ativan) 0.5 mg in 1 mls @ 0.5 mls/min IV Q8H PRN PRN Reason: Sedation/Anxiety Stop: 02/03/21 14:19 Promethazine HCl 12.5 mg/ (Sodium Chloride) 50.5 mls @ 204 mls/hr IV Q6H PRN PRN Reason: Nausea &/or Vomiting Stop: 02/03/21 14:19 Influenza Virus Vaccine Quadrival (Do Not Administer Flu Vaccine) 1 ea N/A PRN PRN PRN Reason: Notification Stop: 02/03/21 14:19 Lisinopril (Lisinopril 10 Mg Tab) 10 mg PO [facility] Stop: 02/04/21 08:59 Lorazepam (Lorazepam 0.5 Mg Tab) 0.5 mg PO Q8H PRN PRN Reason: Sedation/Anxiety Stop: 02/03/21 14:19 Magnesium Hydroxide (Magnesium Hydroxide Susp 30 Ml Udc) 30 ml PO DAILY PRN PRN Reason: Constipation Stop: 02/03/21 14:19 Metoclopramide HCl (Metoclopramide Hcl Inj 5 Mg/Ml 2 Ml Vial) 10 mg IV Q6H PRN PRN Reason: Nausea &/or Vomiting Stop: 02/03/21 14:19 Metoprolol Succinate (Metoprolol Succ 50mg Ext Rel Tab) 50 mg PO [facility] Stop: 02/04/21 08:59 Last Admin: 01/06/21 08:41 Dose: 50 mg Documented by: Multivitamins (Multivitamin Tab) 1 tab PO [facility] Stop: 02/04/21 08:59 Last Admin: 01/06/21 08:40 Dose: 1 tab Documented by: Naloxone HCl (Naloxone Hcl 0.4 Mg/1 Ml Vial/Carp) 0.1 mg IV Q5M PRN; Protocol PRN Reason: Oversedation/Resp Depression Stop: 02/03/21 14:19 Ondansetron HCl (Ondansetron Inj 2 Mg/Ml 2 Ml Vial) 4 mg IV Q6H PRN PRN Reason: Nausea &/or Vomiting Stop: 02/03/21 14:19 Last Admin: 01/04/21 15:32 Dose: 4 mg Documented by: Ondansetron HCl (Ondansetron 4 Mg Od Tab) 4 mg PO Q6H PRN PRN Reason: Nausea Stop: 02/03/21 14:19 Oxycodone HCl (Oxycodone Hcl Ir 5 Mg Tab (Immediate Release)) 5 - 10 mg PO Q4H PRN PRN Reason: Moderate-Severe Pain & Pre PT Stop: 01/18/21 14:19 Last Admin: 01/06/21 04:45 Dose: 10 mg Documented by: Pneumococcal Polyvalent Vaccine (Do Not Administer Pneumococcal Vaccine) 1 ea N/A PRN PRN PRN Reason: Notification Stop: 02/03/21 14:19 Senna/Docusate Sodium (Docusate Sodium/Senna 50/8.6mg Tab) 2 tab PO HS [facility] Stop: 02/03/21 20:59 Last Admin: 01/05/21 20:01 Dose: Not Given Documented by: Sodium Biphosphate/Sodium Phosphate (Sod Phosphate/Sod Biphosphate Enema 132 Ml Btl) 132 ml TX ONE PRN PRN Reason: Constipation Stop: 02/03/21 14:19 Tramadol HCl (Tramadol Hcl 50 Mg Tablet) 50 - 100 mg PO Q4H PRN PRN Reason: Moderate-Severe Pain & Pre PT Stop: 02/03/21 14:19 Vitamin D (Cholecalciferol 1,000 Units 25 Mcg Tab) 2,000 units PO QAM [facility] Stop: 02/04/21 08:59 Last Admin: 01/06/21 08:40 Dose: 2,000 units Documented by:
[2021-01-06] MEDS: ACETAMINOPHEN 500 MG TAB PO PRN ×2 (13:21→21:04)
[2021-01-06] MEDS: DOCUSATE SODIUM/SENNA 50/8.6MG TAB PO SCH (20:50)
[2021-01-06] MEDS: ATORVASTATIN 10 MG TAB PO SCH (20:50)
[2021-01-07] MEDS: oxyCODONE HCL IR 5 MG TAB (IMMEDIATE RELEASE) PO PRN ×3 (04:40→22:54)
[2021-01-07] MEDS: METOPROLOL SUCC 50MG EXT REL TAB PO SCH (07:52)
[2021-01-07] MEDS: MULTIVITAMIN TAB PO SCH (07:53)
[2021-01-07] MEDS: CHOLECALCIFEROL 1,000 UNITS 25 MCG TAB PO SCH (07:53)
[2021-01-07] MEDS: CYANOCOBALAMIN (VITAMIN B-12) 2,500 MCG TAB.SUBL SL SCH (07:53)
--- NOTE | 2021-01-07 09:26 | Hospitalist Progress Note ---
Date of Service January 07, 2021 Assessment & Plan (1) S/P spinal surgery: This is a 71yo F with a PMH of HTN, dyslipidemia, mild SILVIA not on CPAP, history of sacral wound and other medical problems listed below who is POD#0 s/p lumbar decompression L1-L2, L3-L4 and L4-L5 and fusion L4-L5 by Dr. Fleming. POD#3 s/p lumbar decompression L1-L2, L3-L4 and L4-L5 and fusion L4-L5 by Dr. Fleming Pt is doing well post-operatively Per ortho for pain control, wound care, anticoagulation and activities Monitor H&H (pre-op hgb 14.2, EBL 300 ml, ELEN output 480ml to date) Continue incentive spirometry, PT/OT when appropriate Hemoglobin remains stable at 12.5 Medically stable (2) Hypertension: BP minimally elevated today, 145/83. Continue metoprolol succinate with hold parameters. Resume lisinopril (3) Hyperlipidemia: Continue statin (4) Sacral wound: History of sacral wound present prior to admission; recently released from wound care (5) Sleep apnea: Does not use CPAP. Continuous pulse ox, supplemental O2 PRN PCP: Amari Hutchison Dispo: Possible d/c today Admission and Anticipated Discharge Date Admission Date: January 04, 2021 Supervising Physician Co-Signing Physician Notes Attending addendum: The patient was seen and examined in medical floor She is a status post L1-2 and L4-5 decompression fusion She has been stable with minimal pain at the back On examination No apparent distress at rest Sitting on a chair without any complaints Remains hemodynamically stable Chest-clear Heart-S1-S2, regular Abdomen-benign Extremities-negative for any edema Her labs and imaging studies reviewed Remains medically stable Agree with assessment plan as outlined above by Vannessa bernstein Subjective Patient was seen and examined in room 305. Follow-up lumbar surgery and hypertension. She is sitting up at bedside in chair. Patient was seen and evaluated with surgeon at bedside. Plan is to possibly go to rehab today pending insurance authorization and bed availability. She offers no acute concerns or complaints. She denies fever, chills, sweats, lightheadedness, dizziness, chest pain, shortness breath, cough, nausea, vomiting, abdominal pain. Initially she did have issue with urinary retention requiring straight catheterization but most recently has been urinating without difficulty. She is passing flatus. Good appetite. Review of Systems Review of Systems: All systems reviewed & are unremarkable except as noted in HPI & below Physical Exam Physical Exam: Gen: WD/WN, NAD, A&O x3 HEENT: Normocephalic, atraumatic, conjunctivae moist, sclerae anicteric, mucous membranes moist. Lung: Clear to Auscultation bilaterally, no wheezes/rales/rhonchi Heart: Regular rate, regular rhythm, no murmurs, rubs, or gallops Abdomen: Soft, NT, ND +BS x 4 Extremities: No edema, lumbar dressing CDI, ELEN drain with minimal serosanguineous drainage Skin: Warm, no rash, negative turgor. Results & Data Results & Data ([facility]) Vital Signs (Past 12 Hours) Vital Signs Temp Pulse Resp BP Pulse Ox 01/07/21 06:19 37.2 C 90 16 145/83 H 98 01/06/21 23:09 37.1 C 83 16 136/76 92 Medications Administered Acetaminophen (Acetaminophen 500 Mg Tab) 1,000 mg PO Q8H PRN PRN Reason: MILD Pain Scale 1,2,3 & Pre PT Stop: 02/03/21 14:19 Last Admin: 01/06/21 21:04 Dose: 1,000 mg Documented by: [id number] Admin: 01/06/21 13:21 Dose: 1,000 mg Documented by: [id number] Admin: 01/05/21 20:03 Dose: 1,000 mg Documented by: [id number] Atorvastatin Calcium (Atorvastatin 10 Mg Tab) 10 mg PO PM [facility] Stop: 02/03/21 20:59 Last Admin: 01/06/21 20:50 Dose: 10 mg Documented by: [id number] Admin: 01/05/21 20:03 Dose: 10 mg Documented by: [id number] Admin: 01/04/21 20:35 Dose: 10 mg Documented by: [id number] Cyanocobalamin (Cyanocobalamin (Vitamin B-12) 2,500 Mcg Tab.Subl) 2,500 mcg SL QAM [facility] Stop: 02/04/21 08:59 Last Admin: 01/07/21 07:53 Dose: 2,500 mcg Documented by: [id number] Admin: 01/06/21 08:40 Dose: 2,500 mcg Documented by: [id number] Admin: 01/05/21 09:26 Dose: 2,500 mcg Documented by: [id number] Metoprolol Succinate (Metoprolol Succ 50mg Ext Rel Tab) 50 mg PO [facility] Stop: 02/04/21 08:59 Last Admin: 01/07/21 07:52 Dose: 50 mg Documented by: [id number] Admin: 01/06/21 08:41 Dose: 50 mg Documented by: [id number] Admin: 01/05/21 09:25 Dose: 50 mg Documented by: [id number] Multivitamins (Multivitamin Tab) 1 tab PO [facility] Stop: 02/04/21 08:59 Last Admin: 01/07/21 07:53 Dose: 1 tab Documented by: [id number] Admin: 01/06/21 08:40 Dose: 1 tab Documented by: [id number] Admin: 01/05/21 09:25 Dose: 1 tab Documented by: [id number] Ondansetron HCl (Ondansetron Inj 2 Mg/Ml 2 Ml Vial) 4 mg IV Q6H PRN PRN Reason: Nausea &/or Vomiting Stop: 02/03/21 14:19 Last Admin: 01/04/21 15:32 Dose: 4 mg Documented by: [id number] Oxycodone HCl (Oxycodone Hcl Ir 5 Mg Tab (Immediate Release)) 5 - 10 mg PO Q4H PRN PRN Reason: Moderate-Severe Pain & Pre PT Stop: 01/18/21 14:19 Last Admin: 01/07/21 04:40 Dose: 10 mg Documented by: [id number] Admin: 01/06/21 04:45 Dose: 10 mg Documented by: [id number] Senna/Docusate Sodium (Docusate Sodium/Senna 50/8.6mg Tab) 2 tab [address] [facility] Stop: 02/03/21 20:59 Last Admin: 01/06/21 20:50 Dose: Not Given Documented by: [id number] Admin: 01/05/21 20:01 Dose: Not Given Documented by: [id number] Admin: 01/04/21 20:36 Dose: 2 tab Documented by: [id number] Vitamin D (Cholecalciferol 1,000 Units 25 Mcg Tab) 2,000 units PO [facility] Stop: 02/04/21 08:59 Last Admin: 01/07/21 07:53 Dose: 2,000 units Documented by: [id number] Admin: 01/06/21 08:40 Dose: 2,000 units Documented by: [id number] Admin: 01/05/21 09:25 Dose: 2,000 units Documented by: [id number] Discontinued Medications Acetaminophen (Acetaminophen 500 Mg Tab) 1,000 mg PO PREOP [facility] Stop: 01/04/21 18:00 Last Admin: 01/04/21 09:20 Dose: 1,000 mg Documented by: [id number] Bacitracin (Bacitracin Inj 50,000 Unit Vial) Confirm Administered Dose 50,000 units .ROUTE .STK-MED ONE Stop: 01/04/21 10:02 Last Admin: 01/04/21 11:37 Dose: 50,000 units Documented by: [id number] Bupivacaine HCl/Epinephrine Bitart (Bupivacaine/Epinephrine 0.5% Mpf 1:200,000 30 Ml Vial) Confirm Administered Dose 30 ml .ROUTE .STK-MED ONE Stop: 01/04/21 10:02 Last Admin: 01/04/21 11:37 Dose: 30 ml Documented by: [id number] Celecoxib (Celebrex 200 Mg Cap) 200 mg PO PREOP [facility] Stop: 01/04/21 18:00 Last Admin: 01/04/21 09:21 Dose: 200 mg Documented by: [id number] Gabapentin (Gabapentin 300 Mg Cap) Confirm Administered Dose 300 mg .ROUTE .STK- MED ONE Stop: 01/04/21 08:59 Last Admin: 01/04/21 09:21 Dose: 300 mg Documented by: [id number] Lactated Ringer's (Lr) 1,000 mls @ 15 mls/hr IV .Q24H [facility] Stop: 01/05/21 05:59 Last Infusion: 01/04/21 10:19 Dose: 0 mls/hr Documented by: [id number] Admin: 01/04/21 09:20 Dose: 15 mls/hr Documented by: [id number] Cefazolin Sodium (Ancef 2000mg) 2,000 mg in 15 mls @ 3.75 mls/min IV PREOP [facility]; Protocol Stop: 01/04/21 18:00 Last Admin: 01/04/21 10:19 Dose: 3.75 mls/min Documented by: [id number] Cefazolin Sodium (Ancef 2000mg) 2,000 mg in 15 mls @ 3.75 mls/min IV Q8H [facility]; Protocol Stop: 01/05/21 02:03 Last Admin: 01/05/21 01:21 Dose: 3.75 mls/min Documented by: [id number] Admin: 01/04/21 18:20 Dose: 3.75 mls/min Documented by: [id number] Sodium Chloride (Nss 1000ml) 1,000 mls @ 100 mls/hr IV .Q10H [facility] Stop: 02/03/21 14:19 Last Infusion: 01/05/21 06:26 Dose: 0 mls/hr Documented by: [id number] Admin: 01/05/21 01:21 Dose: 100 mls/hr Documented by: [id number] Infusion: 01/05/21 01:21 Dose: 100 mls/hr Documented by: [id number] Admin: 01/04/21 15:31 Dose: 100 mls/hr Documented by: [id number] Miscellaneous ( Floseal Hemostatic Matrix 10ml) 20 ml TOP ONCE ONE Stop: 01/04/21 11:25 Last Admin: 01/04/21 11:38 Dose: 20 ml Documented by: [id number] Ondansetron HCl (Ondansetron Inj 2 Mg/Ml 2 Ml Vial) 4 mg IV ONCE PRN PRN Reason: PACU Use Only-Nausea/Vomiting Stop: 01/04/21 17:44 Last Admin: 01/04/21 13:34 Dose: 4 mg Documented by: [id number] Polyethylene Glycol (Polyethylene (Miralax) 17 Gm Pack) 17 gm PO Q6 [facility] Stop: 02/04/21 05:59 Last Admin: 01/05/21 17:23 Dose: Not Given Documented by: [id number] Admin: 01/05/21 12:47 Dose: 17 gm Documented by: [id number] Admin: 01/05/21 06:01 Dose: 17 gm Documented by: [id number]
--- NOTE | 2021-01-07 09:37 | Discharge Summary ---
Date of Service January 07, 2021 Admission HPI Per Admitting Provider This is a 71-year-old female presents with chronic persistent back and bilateral leg pain. Failing course of nonoperative care is here for surgical invention. Principal Diagnosis Lumbar spinal stenosis with neurogenic claudication Discharge Data Allergies Allergy/AdvReac Type Severity Reaction Status Date / Time No Known Allergies Allergy Verified 01/04/21 09:11 Consultations 01/04/21 14:20 Consult Hospitalist Routine Procedures Performed Operation Date: 01/04/21 10:10 Actual Procedures p L1-L2 and L4-L5 Decompression, L4-L5 Fusion, interbody cage at L4-L5, Spinal Cord Monitoring(Not Applicable) - Edilson Fleming DO Ordered Studies 01/04/21 10:10 FL fluoroscopy <1hr Routine FL lumbar spine 2-3V Routine Hospital Course (1) Neurogenic claudication due to lumbar spinal stenosis: Patient underwent lumbar decompression fusion tolerated well second orthopedic for postop labor postop day 1 she is tolerating therapy progressed to postop day #2 on postop day #3 back pain is controlled leg pain markedly improved ELEN drain decreasing probably. [facility] Discharge orders instructions from the chart for further review. Total Time Total Time Spent Total Time Spent (In Minutes): 20 minutes Discharge Plan Discharge Items Patient Disposition: Transfer [facility] Reason For Visit: Spinal Stenosis, Lumbar Region with Neurogenic Discharge Diagnosis: Lumbar spinal stenosis with neurogenic claudication Activity: As commented below Non-emergency contact: Primary Care Provider Call non-emergency contact if: you have any medication questions Follow-up/Referrals: Chiquita Emmanuel PA-C [Primary Care Provider] - Diet: Regular Addtl Attending Provider Instructions: ACTIVITY RECOMMENDATIONS: SELF CARE INSTRUCTIONS AFTER THORACIC/LUMBAR FUSIONS 1. You may walk to your tolerance. It is good exercise for your legs and back. Expect some back and intermittent leg aches and pains. 2. You may perform "counter-top" level activities (make a sandwich, coco with a project, etc.). 3. No bending or lifting of more than 10 pounds or back twisting of any nature (roll like a log when turning in bed). 4. You may ride in a car for 20-30 minutes at a time. No driving until after your first visit with your doctor. 5. Frequent changes of position and restricting sitting to 30 minutes at a time will help limit the amount of back spasms and stiffness you may experience. 6. You may discontinue the use of ambulatory aids (cane, crutches, etc.) once your strength and confidence allow. 7. You may infantryman the shower and let water strike your incision when you arrive home at least once daily. Do not take a tub bath, sit in a hot tub or go into a swimming pool until after your first recheck in the office. SPECIAL CARE INSTRUCTIONS: VERY IMPORTANT TO READ AND REVIEW A. Your surgical incision has been closed with a cosmetic suture under the skin that will dissolve in about 6 weeks. In 14 days, you can use a pair of clean scissors and cut the suture that is left outside of the skin at the ends of your incision. 1. The small skin tapes can be removed 7 days after surgery if they have not fallen off by that point. 2. You may keep the wound open to air as much as possible to promote healing after post-op day number 5 unless told otherwise by your doctor. 3. If you think the wound looks like it is becoming infected (redness or worsening drainage) and/or you are experiencing fever, chill or worsening back pain and muscle spasms, contact the office so that we may evaluate you as soon as possible. B. Complications are uncommon, but please contact us if you have any signs or symptoms of: 1. wound infection (fever higher than 102.5 degrees F, redness, separation of wound, drainage, or increasing pain from the incision) 2. blood clots in legs (pain, swelling, redness and warmth in legs) 3. urinary tract infection (fever higher than 102.5 degrees F, burning upon urination or increased frequency of urination) 4. nerve problems (inability to walk on your toes or heels, numbness, loss of bowel or bladder control) 5. any other symptoms that concern you C. Please call the office at if you have any concerns or questions about your operation or recovery. D. No smoking! Smoking drastically decreases the chance of a solid fusion. E. Do not take any anti-inflammatory medications (Indocin, Advil, Motrin, Aspirin, Naprosyn, etc.) as these may inhibit the chance of a solid fusion. Tylenol is okay to take for pain. MANAGING PAIN AFTER SPINAL SURGERY 1. Narcotic medication is intended for short-term use and will be provided for surgical pain. Surgical pain usually lasts for a period of 4-6 weeks. Narcotic medication includes Percocet, Vicodin, Darvocet, Tylenol #3 or Lortab. 2. Longer-term pain is more appropriately treated with non-narcotic medication such as Tylenol ES. 3. Muscle spasm is not appropriately treated with narcotics. Muscle relaxers such as Soma, Flexeril or Skelaxin can be used along with Tylenol ES. 4. Remember that we all live with some "aches and pains". This is not unusual or uncommon after an injury or as we get older. a. Back pain is expected and may include muscle spasms for 4 to 6 weeks after surgery. The pain should gradually improve. If the pain worsens for no apparent reason, please contact the office. b. Intermittent leg pain may also be experienced and should not be concerned about unless it worsens for no apparent reason. If so, please contact the office. 5. We will provide appropriate medication within the normal guidelines of their prescribed use. We will also be very cautious and aware of potential abuse and extended duration of patients' medication needs. a. Pain medications are for your comfort and to assist with sleep and rest so that the tissue can heal. They are not provided in order to return to normal activity and should not be used through the day. To do so or worsening pain at night can result from ongoing tissue damage and development of tolerance to the prescribed medicine. 6. Please allow 2-3 days to process refills. Prescriptions will not be mailed but must be picked up at the office. FOLLOW UP VISIT: Keep your scheduled follow-up appointment. Any questions, please call the office at . Pending Studies at Discharge: No Stand-Alone Forms: My [facility] [facility] Skilled Items Patient informed of condition?: Yes DNR: No Discharge Level of Care: Skilled Communicable Disease: No Discharge Prognosis: Improving Lines: None Urinary Catheter: No Medications and DC Order Prescriptions: New oxycodone 5 mg tablet 5 mg PO Q6H PRN (Reason: pain, severe) Qty: 30 RF: 0 tramadol 50 mg tablet 50 mg PO Q6H PRN (Reason: pain, moderate) Qty: 30 RF: 0 Continued multivitamin Tablet 1 tab PO QAM RF: 0 atorvastatin 10 mg Tablet 10 mg PO PM RF: 0 metoprolol succinate 50 mg Tablet Extended Release 24 Hr 50 mg PO QAM RF: 0 lisinopril 10 mg Tablet 10 mg PO QAM RF: 0 cholecalciferol (vitamin D3) [Vitamin D3] 50 mcg (2,000 unit) Capsule 50 mcg PO QAM RF: 0 cyanocobalamin (vitamin B-12) 2,500 mcg Tablet 2,500 mcg PO QAM RF: 0 acetaminophen [Tylenol Extra Strength] 500 mg Capsule 500 mg PO QID PRN (Reason: Pain) RF: 0 Admission Data Admit Date/Time: 01/04/21 13:09 Attending Provider: Edilson Fleming Admit Provider: Edilson Fleming Primary Care Provider: Chiquita Emmanuel Other Providers: Letty Pérez ; Gloria Choi ; Erika Zimmer ; Darius Meier [place]
[2021-01-07] MEDS: DOCUSATE SODIUM/SENNA 50/8.6MG TAB PO SCH (20:24)
[2021-01-07] MEDS: ATORVASTATIN 10 MG TAB PO SCH (20:24)
[2021-01-08] MEDS: oxyCODONE HCL IR 5 MG TAB (IMMEDIATE RELEASE) PO PRN ×2 (07:41→18:43)
[2021-01-08] MEDS: METOPROLOL SUCC 50MG EXT REL TAB PO SCH (07:41)
[2021-01-08] MEDS: CYANOCOBALAMIN (VITAMIN B-12) 2,500 MCG TAB.SUBL SL SCH (07:42)
[2021-01-08] MEDS: lisinopril 10 MG TAB PO SCH (07:42)
[2021-01-08] MEDS: CHOLECALCIFEROL 1,000 UNITS 25 MCG TAB PO SCH (07:43)
[2021-01-08] MEDS: MULTIVITAMIN TAB PO SCH (07:43)
--- NOTE | 2021-01-08 08:49 | Hospitalist Progress Note ---
Date of Service January 08, 2021 Assessment & Plan (1) S/P spinal surgery: This is a 71yo F with a PMH of HTN, dyslipidemia, mild SILVIA not on CPAP, history of sacral wound and other medical problems listed below who is POD#4 s/p lumbar decompression L1-L2, L3-L4 and L4-L5 and fusion L4-L5 by Dr. Fleming. POD#4 s/p lumbar decompression L1-L2, L3-L4 and L4-L5 and fusion L4-L5 by Dr. Fleming Pt is doing well post-operatively Per ortho for pain control, wound care, anticoagulation and activities Monitor H&H (pre-op hgb 14.2, EBL 300 ml, ELEN output 480ml to date) Continue incentive spirometry, PT/OT when appropriate Hemoglobin remains stable at 12.5 Medically stable (2) Hypertension: BP minimally elevated today, 158/85 prior to med administration. Also likely elevated in setting of pain. Continue metoprolol and lisinopril (3) Hyperlipidemia: Continue statin (4) Sacral wound: History of sacral wound present prior to admission; recently released from wound care (5) Sleep apnea: Does not use CPAP. Continuous pulse ox, supplemental O2 PRN PCP: Amari Hutchison Dispo: Possible d/c today; awaiting insurance authorization Admission and Anticipated Discharge Date Admission Date: January 04, 2021 Supervising Physician Co-Signing Physician Notes Attending addendum: The patient was seen and examined in medical floor She has been feeling much better and only complains to have some pain in the left lateral thigh area Denies any other significant symptoms On examination Sitting on a chair without any acute distress Hemodynamically stable with a blood pressure on the upper side at 158/85 Chest-clear to auscultate bilaterally HeartS1-S2, no murmur Abdomenbenign Local examination of the left lateral thigh is unremarkable CNSalert, awake and oriented x3 Her labs were reviewed She is a status post back surgery and remained stable medically Agree with assessment and plan as outlined above by FRANCO Valdez Dr Subjective Patient was seen and examined in room 305. Follow-up lumbar surgery and hypertension. She is sitting up at bedside eating breakfast. Overall offers no complaints. She does have pain going from left hip to left foot which is new for her. She denies any incisional pain. She denies fever, chills, sweats, lightheadedness, dizziness, chest pain, shortness of breath, nausea, vomiting, abdominal pain. She is passing flatus. She is waiting for insurance authorization to head to rehab. She feels therapy is going well. Review of Systems Review of Systems: All systems reviewed & are unremarkable except as noted in HPI & below Physical Exam Physical Exam: Gen: WD/WN, NAD, A&O x3 HEENT: Normocephalic, atraumatic, conjunctivae moist, sclerae anicteric, mucous membranes moist. Lung: Clear to Auscultation bilaterally, no wheezes/rales/rhonchi Heart: Regular rate, regular rhythm, no murmurs, rubs, or gallops Abdomen: Soft, NT, ND +BS x 4 Extremities: No edema, lumbar dressing CDI Skin: Warm, no rash, negative turgor. Results & Data Results & Data ([facility]) Vital Signs (Past 12 Hours) Vital Signs Temp Pulse Pulse Resp BP Pulse Ox 01/08/21 07:22 36.9 C 81 16 158/85 H 95 01/07/21 22:29 37.1 C 90 18 153/90 H 99 COVID-19 Results Results COVID-19 Adm Lab Results: RBC 3.96 M/uL (4.2-5.4) L 01/06/21 WBC 14.01 K/uL (4.8-10.8) H 01/06/21 Hgb 12.5 g/dL (12.0-16.0) 01/06/21 Hct 36.1 % (37-47) L 01/06/21 Plt Count 269 K/uL (130-400) 01/06/21 Neutrophils (%) (Auto) 82.1 % 01/06/21 Lymphocytes (%) (Auto) 8.5 % 01/06/21 Monocytes # (Auto) 1.14 K/uL (0.11-0.59) H 01/06/21 Eosinophils # (Auto) 0.13 K/uL (0-0.5) 01/06/21 Immature Granulocyte % (Auto) 0.2 % 01/06/21 Neutrophils # (Auto) 11.49 K/uL (1.4-6.5) H 01/06/21 Lymphocytes # (Auto) 1.19 K/uL (1.2-3.4) L 01/06/21 Monocytes # (Auto) 1.14 K/uL (0.11-0.59) H 01/06/21 Eosinophils # (Auto) 0.13 K/uL (0-0.5) 01/06/21 Basophils # (Auto) 0.03 K/uL (0-0.2) 01/06/21 Immature Granulocyte # (Auto) 0.03 K/uL (0.00-0.02) H 01/06/21 Na 138 mmol/L (136-145) 01/05/21 K 3.7 mmol/L (3.5-5.1) 01/05/21 Cl 107 mmol/L (98-107) 01/05/21 CO2 27 mmol/L (21-32) 01/05/21 Anion Gap 4.0 (3-11) 01/05/21 BUN 22 mg/dl (7-18) H 01/05/21 Creatinine 1.06 mg/dl (0.6-1.2) 01/05/21 BUN/Creatinine Ratio 20.9 (10-20) H 01/05/21 Glucose Level 112 mg/dl (70-99) H 01/05/21 Ca 8.3 mg/dl (8.5-10.1) L 01/05/21 PTT 26.6 Seconds (21.0-31.0) 12/21/20 INR 1.0 (0.9-1.1) 12/21/20 SARS-CoV-2, RNA, NAAT NEGATIVE (NEGATIVE) 01/07/21
--- NOTE | 2021-01-08 13:03 | Orthopedic Progress Note ---
Date of Service January 08, 2021 Assessment & Plan (1) Neurogenic claudication due to lumbar spinal stenosis: Admission and Anticipated Discharge Date Admission Date: January 04, 2021 This time continue physical therapy monitor her progress anticipate discharge to shelter when bed available. Subjective Back pain is controlled leg pain improved Physical Exam Physical Exam: Patient is in the chair at the bedside. She appears comfortable. Is good strength testing. Results & Data ([facility]) Vital Signs (Past 12 Hours) Vital Signs Temp Pulse Resp BP Pulse Ox 01/08/21 07:22 36.9 C 81 16 158/85 H 95
[2021-01-08] MEDS: ATORVASTATIN 10 MG TAB PO SCH (21:47)
[2021-01-08] MEDS: DOCUSATE SODIUM/SENNA 50/8.6MG TAB PO SCH (21:47)
[2021-01-09] MEDS: oxyCODONE HCL IR 5 MG TAB (IMMEDIATE RELEASE) PO PRN (01:37)
[2021-01-09] MEDS: lisinopril 10 MG TAB PO SCH (09:48)
[2021-01-09] MEDS: CYANOCOBALAMIN (VITAMIN B-12) 2,500 MCG TAB.SUBL SL SCH (09:48)
[2021-01-09] MEDS: CHOLECALCIFEROL 1,000 UNITS 25 MCG TAB PO SCH (09:48)
[2021-01-09] MEDS: METOPROLOL SUCC 50MG EXT REL TAB PO SCH (09:48)
[2021-01-09] MEDS: MULTIVITAMIN TAB PO SCH (09:49)
--- NOTE | 2021-01-09 10:46 | Hospitalist Progress Note ---
Date of Service January 09, 2021 Assessment & Plan (1) S/P spinal surgery: This is a 71yo F with a PMH of HTN, dyslipidemia, mild SILVIA not on CPAP, history of sacral wound and other medical problems listed below who is POD#5 s/p lumbar decompression L1-L2, L3-L4 and L4-L5 and fusion L4-L5 by Dr. Fleming. POD#5 s/p lumbar decompression L1-L2, L3-L4 and L4-L5 and fusion L4-L5 by Dr. Fleming Pt is doing well post-operatively Per ortho for pain control, wound care, anticoagulation and activities Monitor H&H (pre-op hgb 14.2, EBL 300 ml, ELEN output 480ml to date) Continue incentive spirometry, PT/OT when appropriate Hemoglobin remains stable at 12.5 Medically stable (2) Hypertension: BP better today, 134/80 Continue metoprolol and lisinopril (3) Hyperlipidemia: Continue statin (4) Sacral wound: History of sacral wound present prior to admission; recently released from wound care (5) Sleep apnea: Does not use CPAP. Continuous pulse ox, supplemental O2 PRN PCP: Amari Hutchison Dispo: D/C to [facility] Today Admission and Anticipated Discharge Date Admission Date: January 04, 2021 Supervising Physician Co-Signing Physician Notes Patient is seen and examined at bedside. Back pain at surgical site is controlled. States having left lower extremity pain which started prior to surgery. Denies chest pain, shortness of breath, dizziness, nausea, abd pain. Offers no other complaints. On exam patient is moderately built and nourished, no apparent distress, normocephalic atraumatic, lungs are clear to auscultation, breath sounds, S1-S2, no murmur, no pedal edema, abdomen soft, nontender, normal bowel sounds, Back: Surgical site in dressing, alert, awake, oriented, grossly no focal neurological deficits. Patient is doing well postop after having lumbar surgery for lumbar spinal stenosis with neurogenic claudication. Hemoglobin stable. Has bowel movement. Continue incentive spirometry. Continue bowel regimen. Pain is controlled. Continue home medications metoprolol, lisinopril for blood pressure control. Continue statin for hyperlipidemia. I personally reviewed the record. Patient is interviewed and examined at bedside. Patient's care is coordinated with Vannessa Serrano PA-C. Please refer to the documentation above for details of patient's presentation and for discussion of other issues. Subjective Patient seen and examined in room 305. Follow-up lumbar surgery and hypertension. Overall she feels well today. She is happy she finally got approval to go to [facility] for rehab. She is sitting up in bedside chair and currently denies pain. She denies fever, chills, sweats, lightheadedness, dizziness, chest pain, shortness of breath, cough, nausea, vomiting, abdominal pain, change in bowel or urinary habits. Good Appetite. Review of Systems Review of Systems: All systems reviewed & are unremarkable except as noted in HPI & below Physical Exam Physical Exam: Gen: WD/WN, NAD, A&O x3 HEENT: Normocephalic, atraumatic, conjunctivae moist, sclerae anicteric, mucous membranes moist. Lung: Clear to Auscultation bilaterally, no wheezes/rales/rhonchi Heart: Regular rate, regular rhythm, no murmurs, rubs, or gallops Abdomen: Soft, NT, ND +BS x 4 Extremities: No edema Skin: Warm, no rash, negative turgor. Results & Data Results & Data ([facility]) Vital Signs (Past 12 Hours) Vital Signs Temp Pulse Resp BP Pulse Ox 01/09/21 06:22 37.0 C 78 16 134/80 95
--- NOTE | 2021-01-09 13:53 | Discharge Summary ---
Date of Service January 09, 2021 Admission HPI Per Admitting Provider This is a 71-year-old female presents with chronic persistent back and bilateral leg pain. Failing course of nonoperative care is here for surgical invention. Principal Diagnosis Lumbar spinal stenosis with neurogenic claudication Discharge Data Allergies Allergy/AdvReac Type Severity Reaction Status Date / Time No Known Allergies Allergy Verified 01/04/21 09:11 Consultations 01/04/21 14:20 Consult Hospitalist Routine Procedures Performed Operation Date: 01/04/21 10:10 Actual Procedures p L1-L2 and L4-L5 Decompression, L4-L5 Fusion, interbody cage at L4-L5, Spinal Cord Monitoring(Not Applicable) - Edilson Fleming DO Ordered Studies 01/04/21 10:10 FL fluoroscopy <1hr Routine FL lumbar spine 2-3V Routine Hospital Course (1) Neurogenic claudication due to lumbar spinal stenosis: Patient underwent lumbar decompression fusion trial as well as taken to orthopedic for postoperative. Postop day 1 she began physical therapy progressed appropriately throughout her hospital stay. Was eventually accepted to care home facility and subsequently discharged home. Discharge instructions found the chart for further review. Total Time Total Time Spent Total Time Spent (In Minutes): 20 minutes Discharge Plan Discharge Items Patient Disposition: Transfer [facility]mediate Fac Reason For Visit: Spinal Stenosis, Lumbar Region with Neurogenic Discharge Diagnosis: Lumbar spinal stenosis with neurogenic claudication Activity: As commented below Non-emergency contact: Primary Care Provider Call non-emergency contact if: you have any medication questions Follow-up/Referrals: Chiquita Emmanuel PA-C [Primary Care Provider] - Diet: Regular Addtl Attending Provider Instructions: ACTIVITY RECOMMENDATIONS: SELF CARE INSTRUCTIONS AFTER THORACIC/LUMBAR FUSIONS 1. You may walk to your tolerance. It is good exercise for your legs and back. Expect some back and intermittent leg aches and pains. 2. You may perform "counter-top" level activities (make a sandwich, coco with a project, etc.). 3. No bending or lifting of more than 10 pounds or back twisting of any nature (roll like a log when turning in bed). 4. You may ride in a car for 20-30 minutes at a time. No driving until after your first visit with your doctor. 5. Frequent changes of position and restricting sitting to 30 minutes at a time will help limit the amount of back spasms and stiffness you may experience. 6. You may discontinue the use of ambulatory aids (cane, crutches, etc.) once your strength and confidence allow. 7. You may seal skinner the shower and let water strike your incision when you arrive home at least once daily. Do not take a tub bath, sit in a hot tub or go into a swimming pool until after your first recheck in the office. SPECIAL CARE INSTRUCTIONS: VERY IMPORTANT TO READ AND REVIEW A. Your surgical incision has been closed with a cosmetic suture under the skin that will dissolve in about 6 weeks. In 14 days, you can use a pair of clean scissors and cut the suture that is left outside of the skin at the ends of your incision. 1. The small skin tapes can be removed 7 days after surgery if they have not fallen off by that point. 2. You may keep the wound open to air as much as possible to promote healing after post-op day number 5 unless told otherwise by your doctor. 3. If you think the wound looks like it is becoming infected (redness or worsening drainage) and/or you are experiencing fever, chill or worsening back pain and muscle spasms, contact the office so that we may evaluate you as soon as possible. B. Complications are uncommon, but please contact us if you have any signs or symptoms of: 1. wound infection (fever higher than 102.5 degrees F, redness, separation of wound, drainage, or increasing pain from the incision) 2. blood clots in legs (pain, swelling, redness and warmth in legs) 3. urinary tract infection (fever higher than 102.5 degrees F, burning upon urination or increased frequency of urination) 4. nerve problems (inability to walk on your toes or heels, numbness, loss of bowel or bladder control) 5. any other symptoms that concern you C. Please call the office at if you have any concerns or questions about your operation or recovery. D. No smoking! Smoking drastically decreases the chance of a solid fusion. E. Do not take any anti-inflammatory medications (Indocin, Advil, Motrin, Aspirin, Naprosyn, etc.) as these may inhibit the chance of a solid fusion. Tylenol is okay to take for pain. MANAGING PAIN AFTER SPINAL SURGERY 1. Narcotic medication is intended for short-term use and will be provided for surgical pain. Surgical pain usually lasts for a period of 4-6 weeks. Narcotic medication includes Percocet, Vicodin, Darvocet, Tylenol #3 or Lortab. 2. Longer-term pain is more appropriately treated with non-narcotic medication such as Tylenol ES. 3. Muscle spasm is not appropriately treated with narcotics. Muscle relaxers such as Soma, Flexeril or Skelaxin can be used along with Tylenol ES. 4. Remember that we all live with some "aches and pains". This is not unusual or uncommon after an injury or as we get older. a. Back pain is expected and may include muscle spasms for 4 to 6 weeks after surgery. The pain should gradually improve. If the pain worsens for no apparent reason, please contact the office. b. Intermittent leg pain may also be experienced and should not be concerned about unless it worsens for no apparent reason. If so, please contact the office. 5. We will provide appropriate medication within the normal guidelines of their prescribed use. We will also be very cautious and aware of potential abuse and extended duration of patients' medication needs. a. Pain medications are for your comfort and to assist with sleep and rest so that the tissue can heal. They are not provided in order to return to normal activity and should not be used through the day. To do so or worsening pain at night can result from ongoing tissue damage and development of tolerance to the prescribed medicine. 6. Please allow 2-3 days to process refills. Prescriptions will not be mailed but must be picked up at the office. FOLLOW UP VISIT: Keep your scheduled follow-up appointment. Any questions, please call the office at . Pending Studies at Discharge: No Stand-Alone Forms: My [facility] Skilled Items Patient informed of condition?: Yes DNR: No Discharge Level of Care: Skilled Communicable Disease: No Discharge Prognosis: Improving Lines: None Urinary Catheter: No Medications and DC Order Prescriptions: New oxycodone 5 mg tablet 5 mg PO Q6H PRN (Reason: pain, severe) Qty: 30 RF: 0 tramadol 50 mg tablet 50 mg PO Q6H PRN (Reason: pain, moderate) Qty: 30 RF: 0 Continued multivitamin Tablet 1 tab PO QAM RF: 0 atorvastatin 10 mg Tablet 10 mg PO PM RF: 0 metoprolol succinate 50 mg Tablet Extended Release 24 Hr 50 mg PO QAM RF: 0 lisinopril 10 mg Tablet 10 mg PO QAM RF: 0 cholecalciferol (vitamin D3) [Vitamin D3] 50 mcg (2,000 unit) Capsule 50 mcg PO QAM RF: 0 cyanocobalamin (vitamin B-12) 2,500 mcg Tablet 2,500 mcg PO QAM RF: 0 acetaminophen 500 mg Capsule 500 mg PO QID PRN (Reason: Pain) RF: 0 Discharge Orders: Discharge Order (Routine); Ordered 01/07/21 Ordered By: Edilson Fleming Admission Data Admit Date/Time: 01/04/21 13:09 Attending Provider: Edilson Fleming Admit Provider: Edilson Fleming Primary Care Provider: Chiuqita Emmanuel Other Providers: Letty Pérez ; Erika Zimmer ; Darius Meier ; Álvaro Drew Other Interventions: Discharge Summary Assessment (RN) Last Done: 01/09/21 07:40
== END 2021-01-09 15:23 | DRG 455 ==
LOC: ASU 08:38 → 3E 13:09

== ENCOUNTER 2022-02-28 05:04 | Observation (INO) ==
--- NOTE | 2022-01-30 14:07 | PAT Medication Instructions ---
Medication Instructions Date of Service January 30, 2022 Home Medications atorvastatin 10 mg tablet 10 mg PO PM cholecalciferol (vitamin D3) 50 mcg (2,000 unit) capsule (Vitamin D3) 50 mcg PO QAM cyanocobalamin (vitamin B-12) 2,500 mcg tablet 2,500 mcg PO QAM 0 lisinopril 10 mg tablet 10 mg PO QAM metoprolol succinate 50 mg tablet,extended release 24 hr 50 mg PO QAM multivitamin 1 tab PO QAM acetaminophen 500 mg capsule 500 mg PO QID PRN naproxen sodium 220 mg capsule (Aleve) 440 mg PO BID PRN Continue as directed naproxen sodium 220 mg capsule (Aleve) 440 mg PO BID PRN DO NOT take the morning of surgery cholecalciferol (vitamin D3) 50 mcg (2,000 unit) capsule (Vitamin D3) 50 mcg PO QAM cyanocobalamin (vitamin B-12) 2,500 mcg tablet 2,500 mcg PO QAM lisinopril 10 mg tablet 10 mg PO QAM multivitamin 1 tab PO QAM Take morning of surgery With a small sip of water, OTHERWISE NOTHING TO EAT OR DRINK AFTER MIDNIGHT: metoprolol succinate 50 mg tablet,extended release 24 hr 50 mg PO QAM acetaminophen 500 mg capsule 500 mg PO QID PRN (okay to take up to 4 hours prior to surgery if needed) Take evening before surgery atorvastatin 10 mg tablet 10 mg PO PM acetaminophen 500 mg capsule 500 mg PO QID PRN (if needed) Other Notes If you have any questions please call us at [phone] or [phone] or [phone] or [phone]
--- NOTE | 2022-01-31 11:56 | Anesthesiology Consultation ---
Date of Service January 31, 2022 Assessment & Plan (1) Encounter for pre-operative examination: - Awaiting most recent cardiology [place] visit [place] [place] - COVID screening: Per assessment on 01/31: No known COVID-19 positive contacts or current COVID-19 related symptoms. Travel screen negative. Surgeon arranging preop COVID testing. Awaiting results. - Concerns regarding SAB given hx of lumbar fusion. Patient s/p L1-L2 and L4-L5 decompression, L4-L5 fusion (01/04/21): Grade 1 view, Raza#2, ETT 7.0 at [facility]. Discussed SAB vs. GA. Questions/concerns addressed. Advised patient that ultimate anesthesia decision AM DOS. To discuss further at that time. Chart Review Chart Review: Patient seen in Pre Admission Testing Teaching & Discussion Pre-Anesthesia Teaching/Discussion Notes: Instructed NPO after midnight before surgery,except medications with 15 cc of water. Medication instructions provided according to the PAT guidelines. History Surgery Operation Date: 02/28/22 11:50 Proposed Procedures p Left Total Knee Arthroplasty - Wilfred Villareal DO Height/Weight Height: 5 ft 1 in Weight: 88.5 kg Allergies Allergy/AdvReac Type Severity Reaction Status Date / Time No Known Allergies Allergy Verified 01/30/22 11:47 Medications Home Medications Medication Instructions Recorded Confirmed Last Taken atorvastatin 10 mg tablet 10 mg PO PM 06/08/20 01/30/22 01/03/21 22:00 cholecalciferol (vitamin D3) 50 50 mcg PO QAM 06/08/20 01/30/22 2 Weeks Ago mcg (2,000 unit) capsule (Vitamin ~12/21/20 D3) cyanocobalamin (vitamin B-12) 2,500 mcg PO QAM 06/08/20 01/30/22 2 Weeks Ago 2,500 mcg tablet ~12/21/20 lisinopril 10 mg tablet 20 mg PO QAM 06/08/20 01/31/22 01/03/21 09:00 metoprolol succinate 50 mg 50 mg PO QAM 06/08/20 01/30/22 01/04/21 07:00 tablet,extended release 24 hr multivitamin 1 tab PO QAM 06/08/20 01/30/22 07/05/20 acetaminophen 500 mg capsule 500 mg PO QID PRN 09/07/20 01/30/22 01/02/21 naproxen sodium 220 mg capsule 440 mg PO BID PRN 01/30/22 01/30/22 Unknown (Chel) Past Medical History Medical History Arthritis History of COVID-19 Dx 07/2021- Dyspnea, cough, loss of appetite > developed blood clots, was admitted to [facility] x 3 days, was on Eliquis x 4 months > resolved Hyperlipidemia Hypertension [place]. Zur[place] [place] Obesity Sleep apnea "Mild"/no device Urinary, incontinence, stress female Exercise / Class Metabolic Activity III < 4 Walking/Shop/Light housework Past Family History Family History Mother Family history of diabetes mellitus Other Heart disease Past Surgical History Surgical History History of bilateral tubal ligation History of cardiac [place] no stents History of carpal tunnel release R/L History of colonoscopy History of hysterectomy + oophorectomy History of lumbar fusion L1-L2 and L4-L5 decompression, L4-L5 fusion (01/04/21): Grade 1 view, Raza#2, ETT 7.0 at [facility] History of surgery on arm right > mass (benign) History of tonsillectomy History of tooth extraction Hx of cholecystectomy Past Anesthesia History No Hx of Anesthesia Complications and No Family Hx of Anesthesia Complications History of PONV No Hx of PONV and Hx of Motion Sickness (Remote hx) Social History Smoking Status: Never smoker Do You Dip or Chew Tobacco: No Hx Alcohol Use: Yes Alcohol type: hard liquor alcohol intake frequency: holidays/special occasions only Hx Substance Use: No substance use type: does not use Review of Systems Patient denies chest pain, shortness of breath, fever, chills, cough, wheezing, palpitations. Physical Exam Vital Signs VITALS BP 129/82 P 67 TEMP 98.5 SP02 97%RA RESP 16 PHYSICAL Full cervical extension range of motion. Full TMJ range of motion. TMD 3.5 finger breaths Mallampati Score 2 Dentition: missing sides/molars, upper right molar broken per pt Lungs: clear throughout to auscultation Cardiac: regular rate and rhythm, no murmurs noted Spine: normal Carotid arteries: negative bruit Extremities: no edema Short neck Lab Results Anesthesia Preop Results Results Anesthesia Widget: WBC 7.37 K/uL (4.8-10.8) 01/31/22 Hgb 13.8 g/dL (12.0-16.0) 01/31/22 Hct 41.9 % (37-47) 01/31/22 Plt 266 K/uL (130-400) 01/31/22 Na 141 mmol/L (136-145) 01/31/22 K 4.7 mmol/L (3.5-5.1) 01/31/22 Cl 108 mmol/L (98-107) H 01/31/22 CO2 28 mmol/L (21-32) 01/31/22 BUN 20 mg/dl (6-23) 01/31/22 Creat 0.87 mg/dl (0.6-1.2) 01/31/22 Glucose Level 97 mg/dl (70-99(Fasting)) 01/31/22 PT 10.3 Seconds (9.0-12.0) 01/31/22 PTT 26.9 Seconds (21.0-31.0) 01/31/22 INR 1.0 (0.9-1.1) 01/31/22 HA1c 5.2 % (4.5-5.6) 01/31/22 Urine Color Yellow 01/31/22 Urine Appearance Clear (Clear) 01/31/22 Urine pH 5.0 (4.5-7.5) 01/31/22 Urine Specific [place] 1.011 (1.000-1.030) 01/31/22 Urine Protein Negative (Negative) 01/31/22 Urine Glucose (UA) Negative (Negative) 01/31/22 Urine Ketones Negative (Negative) 01/31/22 Urine Blood Negative (Negative) 01/31/22 Urine Nitrite Negative (Negative) 01/31/22 Urine Bilirubin Negative (Negative) 01/31/22 Urine Urobilinogen Negative (Negative) 01/31/22 Urine Leukocyte Esterase Negative (Negative) 01/31/22 Blood Type A Positive 01/31/22 Antibody Screen NEGATIVE 01/31/22 Testing Electrocardiogram Date: 07/08/21 NSR at 79bpm. NS TWA. Chest X-Ray Date: 01/31/22 FINDINGS: No pneumothorax. No pleural effusions. The cardiac silhouette is top normal in size. A mildly tortuous thoracic aorta, unchanged. There is an old, healed left anterior sixth rib fracture. No focal lung consolidations to suggest pneumonia. No evidence for pulmonary edema. 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 IMPRESSION: No significant change compared to the prior study. No acute process. Stress Test Date: 02/12/17 Type: exercise Abnormal stress echo consistent with inferior and apical ischemia. 4.4 METS. 99% MPHR. LVEF 70%. Grade I DD. No significant valvular disease.Subsequent cardiac cath done 03/16/17* Cardiac Catheterization Date: 03/16/17 No [place] CAD. No aortic stenosis. Systemic arterial hypertension. Outpatient BP control rec'd.
--- NOTE | 2022-02-27 14:20 | History & Physical Report ---
Date of Service February 27, 2022 Assessment & Plan (1) Osteoarthritis of left knee: Plan: Schedule left total knee arthroplasty for 02/28/2022. All potential risks, benefits, complications, alternatives, and rehab have been discussed with the patient and she wishes to proceed. Plan for aspirin 81 mg twice daily x4 weeks for postoperative DVT prophylaxis. History of Present Illness Chief Complaint: Left knee pain Primary Care Provider: Chiquita Emmanuel PA-C This is a patient with a long history of left knee pain. She has been treated conservatively for left knee osteoarthritis. He has failed all conservative management and is now being set up for surgical treatment. Allergies Allergy/AdvReac Type Severity Reaction Status Date / Time No Known Allergies Allergy Verified 01/30/22 11:47 Home Medications Medication Instructions Recorded Confirmed Type atorvastatin 10 mg tablet 10 mg PO PM 06/08/20 01/30/22 History cholecalciferol (vitamin D3) 50 50 mcg PO QAM 06/08/20 01/30/22 History mcg (2,000 unit) capsule (Vitamin D3) cyanocobalamin (vitamin B-12) 2,500 mcg PO QAM 06/08/20 01/30/22 History 2,500 mcg tablet lisinopril 10 mg tablet 20 mg PO QAM 06/08/20 01/31/22 History metoprolol succinate 50 mg 50 mg PO QAM 06/08/20 01/30/22 History tablet,extended release 24 hr multivitamin 1 tab PO QAM 06/08/20 01/30/22 History acetaminophen 500 mg capsule 500 mg PO QID PRN 09/07/20 01/30/22 History naproxen sodium 220 mg capsule 440 mg PO BID PRN 01/30/22 01/30/22 History (Aleve) Past Med/Surg History Medical History Arthritis History of COVID-19 Dx 07/2021- Dyspnea, cough, loss of appetite > developed blood clots, was admitted to [facility] x 3 days, was on Eliquis x 4 months > resolved Hyperlipidemia Hypertension [place] Obesity Sleep apnea "Mild"/no device Urinary, incontinence, stress female Surgical History History of bilateral tubal ligation History of cardiac cath 2016 [place] > no stents History of carpal tunnel release R/L History of colonoscopy History of hysterectomy + oophorectomy History of lumbar fusion L1-L2 and L4-L5 decompression, L4-L5 fusion (01/04/21): Grade 1 view, Raza#2, ETT 7.0 at [facility] History of surgery on arm right > mass (benign) History of tonsillectomy History of tooth extraction Hx of cholecystectomy Family History Mother Family history of diabetes mellitus Other Heart disease Social History (Updated 01/30/22 @ 12:09 by Evelyn Daley, ANTONIO) Smoking Status: Never smoker Second Hand Exposure: Yes (ON OCC); Hx Alcohol Use: Yes Alcohol type: hard liquor Hx Substance Use: No Preferred Language: Slovenian Communication Ability: Effective Client Services Assistant Required: No Beliefs That Will Affect Care: None marital status: Single Current Living Situation: Family Current Living Situation Comment: SISTER LIVES W PT current occupational status: retired Feels Safe at Home: Yes Assistive Devices: Glasses and Walker Physical Exam Constitutional: well developed and well nourished ENMT: external ear and nose normal, oropharynx normal Neck: trachea midline Respiratory: normal respiratory effort, lungs clear to auscultation Cardiovascular: Rate/Rhythm: regular rate and regular rhythm Gastrointestinal (Abdomen): normal bowel sounds, soft, nontender, no hepatosplenomegaly Musculoskeletal: Knee: + knee ROM with crepitation (Left knee), + joint line tenderness (Left medial and lateral joint lines) and + Mora's sign positive; no skin erythema and no ecchymosis Skin: no rashes, warm and dry Trauma: no evidence of skin trauma Neurologic: normal touch/pain/proprioception Psychiatric: A+Ox3, euthymic affect Speech: normal rate/rhythm/volume of speech Lymphatic: no cervical or axillary lymphadenopathy
[2022-02-28] MEDS: LR 500ML BOLUS, THEN 15ML/HR IV SCH (05:45)
[2022-02-28] MEDS ORDERED: FAMOTIDINE 20 MG TAB PO SCH (06:00)
[2022-02-28] MEDS ORDERED: oxyCODONE HCL 10 MG TABCR (OxyCONTIN) PO SCH (06:00)
[2022-02-28] MEDS ORDERED: TRANEXAMIC ACID 1,000 MG **IV Pre-op IV SCH (06:00)
[2022-02-28] MEDS ORDERED: CeleBREX 200 MG CAP PO SCH (06:00)
[2022-02-28] MEDS ORDERED: ceFAZolin 2000MG 2,000 MG/15 ML SYR IV SCH (06:00)
[2022-02-28] MEDS ORDERED: dexAMETHasone 4 MG TAB PO SCH (06:00)
[2022-02-28] MEDS ORDERED: ACETAMINOPHEN 500 MG TAB PO SCH (06:00)
[2022-02-28] MEDS ORDERED: TRANEXAMIC ACID 1,000 MG **IV Intra-op IV SCH (06:00)
[2022-02-28] MEDS ORDERED: METOCLOPRAMIDE HCL 10 MG TABLET PO SCH (06:00)
[2022-02-28] MEDS ORDERED: GABAPENTIN 300 MG CAP PO SCH (06:00)
[2022-02-28] MEDS ORDERED: ROPIVACAINE 0.5% HCL/PF 150 MG, BUPIVACAINE 0.75% MPF 20 ML, EPINEPHrine 30MG/30ML (OR ... INFIL SCH (06:00)
[2022-02-28] MEDS ORDERED: ROPIVACAINE 0.5% 5 MG/ML 30 ML VIAL ONE (06:19)
[2022-02-28] MEDS ORDERED: BUPIVACAINE 0.5 % 5 MG/1 ML PF 10ML VIAL ONE (06:19)
[2022-02-28] MEDS ORDERED: PROPOFOL IV EMULSION 10 MG/ML 20 ML VIAL IV ONE (06:28)
[2022-02-28] MEDS ORDERED: MIDAZOLAM HCL 1 MG/ML 2ML VIAL ONE (06:28)
[2022-02-28] MEDS ORDERED: fentaNYL citrate 100 MCG/2 ML VIAL ONE ×2 (06:28→07:43)
[2022-02-28] MEDS ORDERED: ONDANSETRON INJ 2 MG/ML 2 ML VIAL ONE (06:28)
[2022-02-28] MEDS ORDERED: ePHEDrine sulfate 50 MG/ML AMP IV PRN (06:51)
[2022-02-28] MEDS ORDERED: fentaNYL citrate 100 MCG/2 ML VIAL IV PRN (06:51)
[2022-02-28] MEDS ORDERED: ATROPINE SULFATE 0.1 MG/ML 10ML SYR IV PRN (06:51)
[2022-02-28] MEDS ORDERED: ONDANSETRON INJ 2 MG/ML 2 ML VIAL IV PRN ×2 (06:51→11:05)
[2022-02-28] MEDS ORDERED: ORTHO JOINT ANESTHETIC ONE (07:02)
[2022-02-28] MEDS ORDERED: ceFAZolin 330 MG/ML 1 GM VIAL ONE (07:02)
--- NOTE | 2022-02-28 07:10 | History & Physical Bridge Note ---
Date of Service February 28, 2022 History & Physical Bridge Note I have examined the patient, reviewed the History & Physical and in the interval since the performance of the History & Physical I have noted the following changes of clinical significance: no changes noted
[2022-02-28] MEDS ORDERED: PHENYLEPHRINE HCL 10 MG/ML VIAL ONE (07:54)
[2022-02-28] MEDS ORDERED: ePHEDrine sulfate 50 MG/ML AMP ONE (07:54)
--- NOTE | 2022-02-28 09:20 | Post Operative Brief Note ---
Immediate Post Op Note v1 Date of Surgery February 28, 2022 Pre & Post Diagnosis Operation Date: 02/28/22 07:15 Pre-Op Diagnosis: Left Knee Osteoarthritis, flexion contracture left knee, genu varum Post-Op Diagnosis: Left Knee Osteoarthritis, flexion contracture left knee, genu varum I identified the patient and participated in the time-out.: Yes Procedure Operation Date: 02/28/22 07:15 Actual Procedures p Left Total Knee Arthroplasty with Ewing & Nephew cemented MRI matched size 4 femur, size 2 tibia, 12 mm posterior stabilized polyethylene, 29 mm round patella- Wilfred Villareal DO Surgeon Wilfred Villareal DO Sales Technician [employer] Morgan Lewis PA-C Estimated Blood Loss 15 Findings Consistent with Post-Op Diagnosis Specimens Bone and tissue left knee Drains Hemovac Drain (10 fr dual trocar) Anesthesia Type MAC Spinal Regional Complications none Disposition Accompanied Patient To Recovery: No Overlapping Procedure I was present for: the critical portions of procedure. I was immediately available: during the entire case.
--- NOTE | 2022-02-28 10:37 | XRay Report ---
LEFT KNEE 2 VIEWS History: Left total knee arthroplasty. Degenerative arthritis. Postop. FINDINGS: The patient is status post a left total knee arthroplasty. The hardware is intact. No fract ure or dislocation. Skin [place] and surgical drains are in place. IMPRESSION: Left total knee arthroplasty. No evidence for hardware complication. ACT 112: Negative or not required by law. Electronically signed by: Daniel Quintero M.D. 02/28/2022 10:35 AM
--- NOTE | 2022-02-28 10:47 | Anesthesiology Progress Note ---
Date of Service February 28, 2022 Anesthesia Post Procedure Vital Signs Vital Signs: Temp Pulse Pulse Resp BP Pulse Ox 02/28/22 10:35 68 16 111/61 93 02/28/22 10:25 75 18 109/66 92 02/28/22 10:15 74 17 115/62 95 02/28/22 10:05 69 16 109/65 95 02/28/22 09:55 98.1 F 81 14 127/68 96 02/28/22 05:45 98.4 F 68 18 159/92 H 96 Transfer of Care Handoff Completed per policy Notes Mental Status: alert / awake / arousable and participated in evaluation Patient Amnestic to Procedure: Yes Nausea / Vomiting: adequately controlled Pain: adequately controlled Airway Patency, RR, SpO2: stable & adequate BP & HR: stable & adequate Hydration State: stable & adequate Anesthetic Complications: no major complications apparent and Pt Satisfied with anesthetic care
[2022-02-28] MEDS ORDERED: bisacodyL 10 MG SUPP PR PRN (11:05)
[2022-02-28] MEDS ORDERED: MAGNESIUM HYDROXIDE SUSP 30 ML UDC PO PRN (11:05)
[2022-02-28] MEDS ORDERED: diphenhydrAMINE Capsule 25 MG CAP PO PRN (11:05)
[2022-02-28] MEDS ORDERED: KETOROLAC TROMETHAMINE 15 MG/ML VIAL IV PRN (11:05)
[2022-02-28] MEDS ORDERED: HYDROmorphone INJ 0.5 MG/0.5 ML SYR IV PRN (11:05)
[2022-02-28] MEDS ORDERED: METOCLOPRAMIDE HCL INJ 5 MG/ML 2 ML VIAL IV PRN (11:05)
[2022-02-28] MEDS ORDERED: NALOXONE HCL 0.4 MG/1 ML VIAL/CARP IV PRN (11:05)
[2022-02-28] MEDS ORDERED: ALUMINUM/MAGNESIUM SUSP 30 ML UDC PO PRN (11:05)
[2022-02-28] MEDS: SODIUM CHLORIDE 0.9% 1000ML 1,000 ML IV SCH ×2 (11:32→20:43)
--- NOTE | 2022-02-28 13:09 | Consultation ---
Date of Consultation February 28, 2022 Assessment & Plan (1) Osteoarthritis of left knee: (2) Hypertension: (3) Hyperlipidemia: (4) Sleep apnea: (5) Obesity: (6) Hx pulmonary embolism: (7) Prolonged QT interval: This is a 72-year-old female who has a significant past medical history of HTN, HLD, obesity, SILVIA not on CPAP, history of PE 2/2 to covid, hx of covid-19 who presents for elective left knee arthroplasty by Dr. Villareal. Left knee osteoarthritis Status post left total knee arthroplasty by Dr. Villareal, POD #0 EBL 15 mL Tolerated procedure well Pain/wound management per orthopedics Activity and therapy as directed by orthopedics Monitor hemoglobin Encourage incentive spirometry, wean oxygen as able Would recommend anticoagulation for DVT prophylaxis with either Lovenox or oral of orthopedic choice due to history of bilateral PE in setting of COVID in July 2021 HTN Blood pressure controlled Continue metoprolol and lisinopril Lisinopril recently increased from 10 mg to 20 mg by PCP HLD Continue statin SILVIA, mild Treated with CPAP Obesity, BMI 36.8 Current weight loss, lifestyle modifications History of COVID-19 History of bilateral pulm emboli Treated with course of Eliquis, repeat CT was negative for PE and since discontinued at end of October 2021 Prolonged QTc interval QTC 520 MS Avoid QTC prolonging medications PCP: LAMIN Acevedo FULL CODE Patient was seen and examined in collaboration with, Dr. Drew, please see addendum Thank you for this consultation. We will follow the patient with you during their hospital stay. You can reach a member of the [facility] Hospitalist Team 27/04 via hospitalist role on tiger text. Supervising Physician Co-Signing Physician Notes Patient is a 72-year-old female with history of hypertension, hyperlipidemia, obstructive sleep apnea and other medical problems was consulted for postop medical management after having left total knee arthroplasty by Dr. Villareal. Patient is doing well postoperatively. Patient's knee pain at surgical site is controlled, currently states having mild nausea. Otherwise denies any chest pain, shortness of breath, dizziness. On exam patient is well-built and nourished, no apparent distress, normocephalic atraumatic, EOMI, normal breath sounds, clear to auscultation, S1-S2, no murmur, no pedal edema, abdomen soft, nontender, normal bowel sounds, right knee surgical site in dressing, alert, awake, oriented, grossly no focal deficits. Prior blood work from January reviewed. Knee x-ray reviewed. Patient is consulted for postop medical management. Monitor for postop anemia. Bowel regimen to prevent constipation. Pain control, activity, DVT prophylaxis as per primary team. Incentive spirometry. Continue home medications for hypertension, hyperlipidemia. I personally reviewed the record. Patient is interviewed and examined at bedside. Patient's care is coordinated with Vannessa Baker PA-C. Please refer to the documentation above for details of patient's presentation and for discussion of other issues. History of Present Illness Requesting Physician: Dr. Villareal Reason for Consultation: Postop medical management Attending Physician: Wilfred Villareal DO History of Present Illness This is a 72-year-old female who has a significant past medical history of HTN, HLD, obesity, SILVIA not on CPAP, history of PE 2/2 to covid, hx of covid-19 who presents for elective left knee arthroplasty by Dr. Villareal. She tolerated the procedure well. She is complaining of slight knee discomfort and mild nausea. She denies any fever, chills, sweats, lightheadedness, dizziness, chest pain, shortness of breath, cough, emesis, abdominal pain, diarrhea, change in bowel or urinary habits prior to procedure. She does have history of high blood pressure currently on lisinopril and metoprolol. She states that her most recent PCP visit her lisinopril was increased from 10 mg to 20 mg. She also has history of SILVIA, but relates this as mild. She does not use any CPAP or oxygen at home. She denies any smoking, but does occasionally drink alcohol. Pt does have hx of covid-19 where she sustained b/l pulmonary emboli. She was treated with eliquis. Repeat imaging revealed evolution of PE and therefore eliquis was discontinued. Allergies Allergy/AdvReac Type Severity Reaction Status Date / Time No Known Allergies Allergy Verified 02/28/22 05:34 Home Medications Medication Instructions Recorded Confirmed Type atorvastatin 10 mg tablet 10 mg PO PM 06/08/20 02/28/22 History cholecalciferol (vitamin D3) 50 50 mcg PO QAM 06/08/20 02/28/22 History mcg (2,000 unit) capsule (Vitamin D3) cyanocobalamin (vitamin B-12) 2,500 mcg PO QAM 06/08/20 02/28/22 History 2,500 mcg tablet lisinopril 10 mg tablet 20 mg PO QAM 06/08/20 02/28/22 History metoprolol succinate 50 mg 50 mg PO QAM 06/08/20 02/28/22 History tablet,extended release 24 hr multivitamin 1 tab PO QAM 06/08/20 02/28/22 History acetaminophen 500 mg capsule 500 mg PO QID PRN 09/07/20 02/28/22 History naproxen sodium 220 mg capsule 440 mg PO BID PRN 01/30/22 02/28/22 History (Aleve) Patient History Medical History (Updated 02/28/22 @ 13:13 by Vannessa Baker PA-C) Arthritis History of COVID-19 Dx 07/2021- Dyspnea, cough, loss of appetite > developed blood clots, was admitted to [facility] x 3 days, was on Eliquis x 4 months > resolved Hx pulmonary embolism Hyperlipidemia Hypertension [place] [place] Obesity Prolonged QT interval Sleep apnea "Mild"/no device Urinary, incontinence, stress female Surgical History History of bilateral tubal ligation History of cardiac cath 2016 ([facility] [place] > no stents History of carpal tunnel release R/L History of colonoscopy History of hysterectomy + oophorectomy History of lumbar fusion L1-L2 and L4-L5 decompression, L4-L5 fusion (01/04/21): Grade 1 view, Raza#2, ETT 7.0 at [facility] History of surgery on arm right > mass (benign) History of tonsillectomy History of tooth extraction Hx of cholecystectomy Family History Mother Family history of diabetes mellitus Other Heart disease Social History Smoking Status: Never smoker Second Hand Exposure: Yes (ON OCC); Do You Dip or Chew Tobacco: No; Hx Alcohol Use: Yes Alcohol type: hard liquor Hx Substance Use: No Preferred Language: Dutch Communication Ability: Effective Photostatic Copy Maker Required: No Beliefs That Will Affect Care: None marital status: Single Current Living Situation: Family Current Living Situation Comment: SISTER LIVES W PT current occupational status: retired Other Information That Helps Us Care for You: No Feels Safe at Home: Yes Safety Concerns: Feels Safe At This Time Assistive Devices: Glasses and Walker Review of Systems Review of Systems: All systems reviewed & are unremarkable except as noted in HPI & below Physical Exam Physical Exam: Constitutional: WD/WN, vitals as above, NAD, sitting up in bed, pleasant, conversing easily Head: Normocephalic, Atraumatic Eyes: PERRL, conjunctivae normal, anicteric sclerae ENMT: external ear and nose normal, oropharynx normal Neck: trachea midline, no thyromegaly normal visual inspection Respiratory: normal respiratory effort, lungs clear to auscultation, no wheeze, rales, rhonchi. Normal insp/exp effort, no accessory muscle use Cardiovascular: RRR, no murmur, no edema Vessels: no JVD or carotid bruit Chest: normal inspection of chest Abdomen: obese, normal bowel sounds, soft, nontender, no hepatosplenomegaly Musculoskeletal: no cyanosis or clubbing, NVI distally to RLE, dressing to RLE CDI, hemovac in place Skin: no rashes, warm and dry normal turgor Neurologic: PERRL, EOMI, accommodation nl, no face palsy, no dysarthria CN's II-XI intact bilaterally and moves all extremities Psychiatric: A+Ox3, euthymic affect : deferred Results & Data ([facility]) Vital Signs (Past 12 Hours) Vital Signs Temp Pulse Pulse Pulse Resp BP Pulse Ox 02/28/22 12:00 70 18 111/67 96 02/28/22 11:33 63 18 109/68 94 02/28/22 11:00 36.6 C 67 18 129/73 93 02/28/22 10:55 65 14 106/61 93 02/28/22 10:45 36.6 C 67 14 107/60 93 02/28/22 10:35 68 16 111/61 93 02/28/22 10:25 75 18 109/66 92 02/28/22 10:15 74 17 115/62 95 02/28/22 10:05 69 16 109/65 95 02/28/22 09:55 36.7 C 81 14 127/68 96 02/28/22 05:45 36.9 C 68 18 159/92 H 96 Laboratory Results Preoperative lab work 01/31/2022 H&H 13.8 and 41.9, WBC 7.37, platelet 266 Sodium 141, K4.7, BUN 20, creatinine 0.87 Urinalysis benign SARS-CoV-2 negative Diagnostic Findings Knee X-Ray 02/28/22 10:03 LEFT KNEE 2 VIEWS History: Left total knee arthroplasty. Degenerative arthritis. Postop. FINDINGS: The patient is status post a left total knee arthroplasty. The hardware is intact. No fracture or dislocation. Skin [place] and surgical drains are in place. IMPRESSION: Left total knee arthroplasty. No evidence for hardware complication. ACT 112: Negative or not required by law. Electronically signed by: Daniel Quintero M.D. 02/28/2022 10:35 AM Medications Administered Current Inpatient Medications Acetaminophen (Acetaminophen 500 Mg Tab) 1,000 mg PO PREOP AMANDA Stop: 02/28/22 18:00 Last Admin: 02/28/22 05:40 Dose: 1,000 mg Documented by: Acetaminophen (Acetaminophen 500 Mg Tab) 1,000 mg PO Q8 AMANDA Stop: 03/30/22 13:59 Al Hydrox/Mg Hydrox/Simethicone (Aluminum/Magnesium Susp 30 Ml Udc) 15 ml PO Q4H PRN PRN Reason: Heartburn Stop: 03/30/22 11:04 Aspirin (Aspirin 81 Mg Ectab) 81 mg PO BID AMANDA Stop: 03/30/22 20:59 Atorvastatin Calcium (Atorvastatin 10 Mg Tab) 10 mg PO PM AMANDA Stop: 03/30/22 20:59 Bisacodyl (Bisacodyl 10 Mg Supp) 10 mg OK DAILY PRN PRN Reason: Constipation Stop: 03/30/22 11:04 Celecoxib (Celebrex 200 Mg Cap) 200 mg PO PREOP AMANDA Stop: 02/28/22 18:00 Last Admin: 02/28/22 05:39 Dose: 200 mg Documented by: Celecoxib (Celebrex 200 Mg Cap) 200 mg PO BID AMANDA Stop: 03/31/22 08:59 Cyanocobalamin (Cyanocobalamin (B-12) 2,500 Mcg Tablet) 2,500 mcg SL QAM AMANDA Stop: 03/31/22 08:59 Dexamethasone (Dexamethasone 4 Mg Tab) 8 mg PO PREOP AMANDA Stop: 02/28/22 18:00 Last Admin: 02/28/22 05:40 Dose: 8 mg Documented by: Diphenhydramine HCl (Diphenhydramine Capsule 25 Mg Cap) 25 mg PO Q8H PRN PRN Reason: Itching Stop: 03/30/22 11:04 Docusate Sodium (Docusate Sodium 100 Mg Cap) 100 mg PO BID AMANDA Stop: 03/30/22 20:59 Famotidine (Famotidine 20 Mg Tab) 20 mg PO PREOP AMANDA Stop: 02/28/22 18:00 Last Admin: 02/28/22 05:39 Dose: 20 mg Documented by: Gabapentin (Gabapentin 300 Mg Cap) 300 mg PO PREOP AMANDA Stop: 02/28/22 18:00 Last Admin: 02/28/22 05:39 Dose: 300 mg Documented by: Hydromorphone HCl (Hydromorphone Inj 0.5 Mg/0.5 Ml Syr) 0.5 mg IV Q3H PRN PRN Reason: Pain or Pre PT Stop: 03/14/22 11:04 Cefazolin Sodium (Ancef 2000mg) 2,000 mg in 15 mls @ 3.75 mls/min IV PREOP AMANDA; Protocol Stop: 02/28/22 18:00 Last Admin: 02/28/22 07:45 Dose: 3.75 mls/min Documented by: Tranexamic Acid (Tranexamic Acid / 0.7% Nacl) 1,000 mg in 100 mls @ 600 mls/hr IV TODAY@0600 AMANDA Stop: 02/28/22 18:00 Last Infusion: 02/28/22 11:56 Dose: Infused Documented by: Tranexamic Acid (Tranexamic Acid / 0.7% Nacl) 1,000 mg in 100 mls @ 600 mls/hr IV TODAY@0600 [facility] Stop: 02/28/22 18:00 Last Infusion: 02/28/22 11:56 Dose: Infused Documented by: Lactated Ringer's (Lr) 1,000 mls @ 15 mls/hr IV .Q24H AMANDA Stop: 03/30/22 05:59 Last Infusion: 02/28/22 07:29 Dose: Infused Documented by: Sodium Chloride (Nss 1000ml) 1,000 mls @ 100 mls/hr IV .Q10H [facility] Stop: 03/01/22 06:00 Last Admin: 02/28/22 11:32 Dose: 100 mls/hr Documented by: Cefazolin Sodium (Ancef 2000mg) 2,000 mg in 15 mls @ 3.75 mls/min IV Q8H [facility]; Protocol Tranexamic Acid (Tranexamic Acid / 0.7% Nacl) 1,000 mg in 100 mls @ 600 mls/hr IV Q6H [facility] Stop: 02/28/22 16:09 Ketorolac Tromethamine (Ketorolac Tromethamine 15 Mg/Ml Vial) 15 mg IV Q6H PRN PRN Reason: Breakthrough Pain Lisinopril (Lisinopril 20 Mg Tab) 20 mg PO [facility] Stop: 03/31/22 08:59 Magnesium Hydroxide (Magnesium Hydroxide Susp 30 Ml Udc) 30 ml PO Q6H PRN PRN Reason: Constipation Stop: 03/30/22 11:04 Metoclopramide HCl (Metoclopramide Hcl 10 Mg Tablet) 10 mg PO PREOP [facility] Stop: 02/28/22 18:00 Last Admin: 02/28/22 05:39 Dose: 10 mg Documented by: Metoclopramide HCl (Metoclopramide Hcl Inj 5 Mg/Ml 2 Ml Vial) 10 mg IV Q6H PRN PRN Reason: Nausea And Vomiting Stop: 03/30/22 11:04 Metoprolol Succinate (Metoprolol Succ 50mg Ext Rel Tab) 50 mg PO [facility] Stop: 03/31/22 08:59 Multivitamins (Multivitamin Tab) 1 tab PO [facility] Stop: 03/31/22 08:59 Naloxone HCl (Naloxone Hcl 0.4 Mg/1 Ml Vial/Carp) 0.1 mg IV Q5M PRN PRN Reason: Oversedation/Resp Depression Stop: 03/30/22 11:04 Ondansetron HCl (Ondansetron Inj 2 Mg/Ml 2 Ml Vial) 4 mg IV Q6H PRN PRN Reason: Nausea And Vomiting Stop: 03/30/22 11:04 Oxycodone HCl (Oxycodone Hcl 10 Mg Tabcr (Oxycontin)) 10 mg PO PREOP [facility] Stop: 02/28/22 18:00 Last Admin: 02/28/22 05:39 Dose: 10 mg Documented by: Oxycodone HCl (Oxycodone Hcl Ir 5 Mg Tab (Immediate Release)) 5 - 10 mg PO Q4H PRN PRN Reason: Pain or Pre PT Stop: 03/14/22 11:04 Sennosides (Senna 8.6 Mg Tab) 17.2 mg PO HS [facility] Stop: 03/30/22 20:59 Vitamin D (Cholecalciferol 1,000 Units 25 Mcg Tab) 2,000 units PO QAM [facility] Stop: 03/31/22 08:59 ECG Rate (beats per minute): 79 Rhythm: normal sinus Findings: + prolonged QT (520ms)
[2022-02-28] MEDS ORDERED: PROMETHAZINE HCL 12.5 MG in SODIUM CHLORIDE 0.9% 50 ML IV PRN (13:14)
[2022-02-28] MEDS: ACETAMINOPHEN 500 MG TAB PO SCH ×2 (13:17→21:50)
--- NOTE | 2022-02-28 14:12 | Operative Report (OR) ---
DATE OF PROCEDURE: 02/28/2022. PREOPERATIVE DIAGNOSES: 1. Left knee osteoarthritis. 2. Left knee flexion contracture. 3. Genu varum deformity. POSTOPERATIVE DIAGNOSES: 1. Left knee osteoarthritis. 2. Left knee flexion contracture. 3. Genu varum deformity. PROCEDURE: Left total knee arthroplasty with Ewing and Nephew cemented MRI matched size 4 femur, siz e 2 tibia, 12 mm posterior stabilized polyethylene, 29 mm round patella. SURGEON: Wilfred Villareal DO. FLAT LOCK OPERATOR: Morgan Lewis PA-C who was present for patient positioning, sterile prep and drape, management of retractors and instruments. He was present through the critical portions of the case i ncluding wound closure, application of sterile dressing and transport of the patient to recovery. ANESTHESIA: MAC spinal, regional. SPECIMENS: Bone and tissue, left knee. DRAINS: A 10-Kosovan dual trocar. COMPLICATIONS: None. BLOOD LOSS: 15 mL. PERTINENT HISTORY: This is a 72-year-old female who had approximately 2-3 years of chronic progressi ve and worsening left knee pain, loss of function, contracture and deformity. She attempted and fail ed conservative management including NSAIDs, rest, physician-directed home exercises, physical therap y, steroid injections, bracing, and use of a cane. Radiographs demonstrate severe degenerative arthr itis with loss of medial joint space, marginal osteophytes, subchondral sclerosis, and subchondral cy sts with Genu varum. The patient was scheduled for surgery as indicated. All potential risks, benefits, complications, alternatives, rehab potential for incomplete relief of symptoms, need for further surgery, DVT, PE, , persistent pain, swelling, scarring, weakness, ne urovascular injury, wound complications, hardware failure, nonunion, malunion, bone fracture were dis cussed with the patient. The patient decided to proceed with the procedure as indicated. DESCRIPTION OF PROCEDURE: The patient was taken to the Operating Suite and placed supine on the Oper ating Room table after the patient had been administered spinal epidural anesthetic and femoral nerve sheath catheter in the preop holding area. The patient was sedated. Proper operative site was identi fied. The tourniquet was placed high on the left lower extremity. The left lower extremity was then s terilely prepped and draped in the usual fashion. Elevated and exsanguinated with an Esmarch bandage. Tourniquet inflated to 350 mmHg. Next a midline 10-blade scalpel incision was made directly over the middle one-third of the patella extending to the level of the tibial tubercle. The incision was deep ened through the subcutaneous tissue and meticulous hemostasis with electrocautery. Full-thickness sk in flaps were developed taking care to avoid neurovascular bundles. Next, median parapatellar capsula r incision was made 10-blade scalpel after the superior medial corner had been marked with a marking pen for later reapproximation. Next, patella was everted. Soft tissue releases were performed of the knee including along the anterior medial corner to the level of the MCL which was protected and relea sed adjacent to the MCL with Cross elevator. Fat pad was resected anteriorly and small half cerna porti on of tissue was resected at the superior margin of the dermal articular surface. Next, the patella t hickness was measured with caliper and held in everted position with Ileana. Next, sagittal saw was u sed to make orthogonal cuts to the level of the patellar nose. Caliper was used to remeasure the neff lla and the appropriate sized patellar button, in this case size 29 mm was felt to be most appropriat e. The alignment guide was then put in place. Peg holes were drilled and alignment guide was then rem addi. Next, the femoral cutting block was placed in the distal aspect of the femur and pinned in plac e. Next the distal femoral cut was made based off the patients anatomy and MRI patient matched cutti ng block. Next, a size 4 distal 4-in-1 cutting block was tamped in place then stabilized with pins. N ext, the appropriate soft tissue retraction was made and anterior chamfer and posterior chamfer cuts were made with the sagittal saw. Next, the 4-in-1 cutting block was then removed followed by removal of all bone fragments. Next, attention was then directed toward the proximal tibia. Blunt Lexus was p laced posterior to the tibia to protract it anteriorly and median and lateral sharp Lexus retractors were placed. Soft tissue and portion of the menisci were then resected at this time and MRI matched p roximal tibial cutting block was then pinned in place and proximal tibial cut was made with sagittal saw. Alignment guide was removed. Pins were removed and the proximal fragment of the tibia was then s harply excised and removed. Next, proximal tibial tray trial size 2 was then pinned in place and this was felt to be well matched for the patients anatomy, pinned in place and keel punch was then utili zed with mallet. Keel punch was then removed and cervical laminar coding analyst was then placed in the med ial compartment. The lateral compartment was then inspected for osteophytes and soft tissue impingeme nt. There was found to be none. I then switched to the lateral compartment and medial compartment was then debrided of any soft tissue impingement. Next the laminar coding analyst was removed and the femoral trial, in this case size 4 was then malleted in place, pinned and then femoral notch milling guide wa s then placed anteriorly. This was then reamed and then punched with sharp punch and mallet. Next, th e distal aspect of the femur was then inserted in notch guide and size 12 mm poly was inserted, reduc ed. Patellar button was then placed in trial and range of motion was performed. Next after range of m otion and stability test was performed the implants were found to be appropriate size. Trials were al l removed. The posterior capsule was injected with Orthomix. Next the joint was then cleansed with pu lsatile lavage using approximately 3 liters normal saline with Bacitracin additive. Next all bony sheryl faces were the suctioned and drained and standard cementing technique was performed with ____ and all excess cement was then removed from around the implant site. The 12 mm posterior stabilized polyethy chiara bearing was implanted and checked for stability. The patellar button was then cemented in place and held in place with patellar clamp. Next, double lumen 10 Kosovan Hemovac drain was then placed and exiting anterolaterally and the capsule was closed using interrupted #1 Vicryl sutures. The dermis w as closed using buried interrupted 2-0 Vicryl and the skin closed with skin dallas. A sterile compre ssive dressing was applied from the toes to the groin and overwrapped with Lorenzo wrap. Tourniquet was r eleased. The patient was awakened and taken to recovery in stable condition. Job ID: [id number]
[2022-02-28] MEDS ORDERED: TRANEXAMIC ACID / 0.7% NACL 1,000 MG/100 ML BAG IV SCH (16:00)
[2022-02-28] MEDS: ceFAZolin 2000MG 2,000 MG/15 ML SYR IV SCH ×2 (16:27→23:41)
[2022-02-28] MEDS: oxyCODONE HCL IR 5 MG TAB (IMMEDIATE RELEASE) PO PRN (16:49)
[2022-02-28] MEDS: DOCUSATE SODIUM 100 MG CAP PO SCH (20:46)
[2022-02-28] MEDS: APIXABAN 2.5 MG TAB PO SCH (20:46)
[2022-02-28] MEDS ORDERED: ATORVASTATIN 10 MG TAB PO SCH (21:00)
[2022-02-28] MEDS ORDERED: ASPIRIN 81 MG ECTAB PO SCH (21:00)
[2022-02-28] MEDS ORDERED: SENNA 8.6 MG TAB PO SCH (21:00)
[2022-03-01] MEDS: oxyCODONE HCL IR 5 MG TAB (IMMEDIATE RELEASE) PO PRN ×3 (03:21→13:39)
[2022-03-01] MEDS: LR 500ML BOLUS, THEN 15ML/HR IV SCH (04:37)
[2022-03-01] MEDS: ACETAMINOPHEN 500 MG TAB PO SCH ×2 (06:02→13:40)
--- NOTE | 2022-03-01 07:32 | Orthopedic Progress Note ---
Date of Service March 01, 2022 Assessment & Plan (1) Osteoarthritis of left knee: Plan: POD 1 s/p Left TKA PT/OT protocols. WBAT. DVT prophylaxis - Apixaban bid, SCD's, ROD conchae Pain management as written Labs pending DC planning - CM to talk to pt this AM. Planning for HH services upon DC. Admission and Anticipated Discharge Date Admission Date: February 28, 2022 Subjective Postop day 1 Pt lying in bed awake, alert. Having some pain this morning in the knee but states it's not too bad. She understands she will be having pain with this. No other complaints. Denies SOB, CP, LH. Physical Exam Physical Exam: Dressings are C/D/I. Calves soft, NT. NV intact. Toes mobile. Good DF/PF of the left foot. Hemovac drained 50ml from previous shift. Results & Data ([facility]) Vital Signs (Past 12 Hours) Vital Signs Temp Pulse Resp BP Pulse Ox 03/01/22 07:13 36.6 C 62 16 108/64 97 03/01/22 03:24 36.6 C 68 18 123/68 98 02/28/22 22:51 36.5 C 63 18 131/75 97 02/28/22 19:35 36.4 C L 62 18 129/71 98
[2022-03-01 08:21] LABS: Hematocrit (blood only) 33.5 % (37-47); Hemoglobin 11.3 g/dL (12.0-16.0); Mean Corpuscular Hemoglobin 30.9 pg (25-34); Mean Corpuscular Hgb Conc 33.7 g/dL (32-36); Mean Corpuscular Volume 91.5 fL (80-100); Mean Platelet Volume 10.5 fL (7.4-10.4); Platelet Count 216 K/uL (130-400); RDW Standard Deviation 46.8 fL (36.4-46.3); Red Blood Count 3.66 M/uL (4.2-5.4); White Blood Count 14.19 K/uL (4.8-10.8)
[2022-03-01] MEDS: DOCUSATE SODIUM 100 MG CAP PO SCH (08:33)
[2022-03-01 08:41] LABS: BUN Creatinine Ratio 24.3 (10-20); Calcium 8.5 mg/dl (8.5-10.1); Creatinine Clr Calc Pharmacy 48.4 ml/min; Est GFR (Non-African American) 53.5 ml/min; Potassium 4.3 mmol/L (3.5-5.1)
[2022-03-01] MEDS ORDERED: lisinopril 20 MG TAB PO SCH (09:00)
[2022-03-01] MEDS ORDERED: CeleBREX 200 MG CAP PO SCH (09:00)
[2022-03-01] MEDS ORDERED: METOPROLOL SUCC 50MG EXT REL TAB PO SCH (09:00)
[2022-03-01] MEDS ORDERED: MULTIVITAMIN TAB PO SCH (09:00)
[2022-03-01] MEDS ORDERED: CHOLECALCIFEROL 1,000 UNITS 25 MCG TAB PO SCH (09:00)
[2022-03-01] MEDS ORDERED: CYANOCOBALAMIN (B-12) 2,500 MCG TABLET SL SCH (09:00)
--- NOTE | 2022-03-01 09:08 | Hospitalist Progress Note ---
Date of Service March 01, 2022 Assessment & Plan (1) Osteoarthritis of left knee: (2) Hypertension: (3) Hyperlipidemia: (4) Sleep apnea: (5) Obesity: (6) Hx pulmonary embolism: (7) Prolonged QT interval: Plan: This is a 72-year-old female who has a significant past medical history of HTN, HLD, obesity, SILVIA not on CPAP, history of PE 2/2 to covid, hx of covid-19 who presents for elective left knee arthroplasty by Dr. Villareal. Left knee osteoarthritis Status post left total knee arthroplasty by Dr. Villareal, POD #1 (on 02/28) Tolerated procedure well Pain/wound management per orthopedics Activity and therapy as directed by orthopedics, WBAT. Monitor hemoglobin Encourage incentive spirometry, wean oxygen as able Would recommend anticoagulation for DVT prophylaxis with either Lovenox or oral of orthopedic choice due to history of bilateral PE in setting of COVID in July 2021 DVT prophylaxis - Apixaban bid, SCD's, ROD hose Acute blood loss anemia, postop versus dilutional -Pre-op hemoglobin 13.8, current hemoglobin 11.3 -Expected, no need for blood transfusion HTN Blood pressure controlled Continue metoprolol and lisinopril Lisinopril recently increased from 10 mg to 20 mg by PCP HLD Continue statin SILVIA, mild Treated with CPAP Obesity, BMI 36.8 Current weight loss, lifestyle modifications History of COVID-19 History of bilateral pulm emboli Treated with course of Eliquis, repeat CT was negative for PE and since discontinued at end of October 2021 Prolonged QTc interval QTC 520 MS Avoid QTC prolonging medications PCP: LAMIN Acevedo FULL CODE Thank you for this consultation. We will follow the patient with you during their hospital stay. You can reach a member of the [facility] Hospitalist Team 27/04 via hospitalist role on tiger text. Admission and Anticipated Discharge Date Admission Date: February 28, 2022 Subjective Patient seen in follow-up of left TKA Patient underwent surgery yesterday, tolerated procedure well Currently laying in bed, in no acute distress Denies any fevers, chills, chest pain, shortness of breath, abdominal pain, nausea or vomiting Reports that while laying down, she does not have significant knee pain, however she has some pain when standing up Review of Systems Review of Systems: All systems reviewed & are unremarkable except as noted in Subjective Physical Exam Physical Exam: Constitutional: Obese F in NAD Head: Normocephalic, Atraumatic Eyes: PERRL, EOMI, conjunctivae normal, anicteric sclerae ENMT: external ear and nose normal, oropharynx normal Neck: normal visual inspection Respiratory: normal respiratory effort, lungs clear to auscultation, no wheeze, rales, rhonchi. Cardiovascular: RRR, no murmur, no edema Chest: normal inspection of chest Abdomen: obese, normal bowel sounds, soft, nontender Musculoskeletal:NVI distally to RLE, dressing to RLE CDI, hemovac in place Skin:warm and dry normal turgor Neurologic: PERRL, EOMI, no face palsy, no dysarthria, moves all extremities Psychiatric: A+Ox3, euthymic affect Results & Data Results & Data ([facility]) Vital Signs (Past 12 Hours) Vital Signs Temp Pulse Resp BP Pulse Ox 03/01/22 07:13 36.6 C 62 16 108/64 97 03/01/22 03:24 36.6 C 68 18 123/68 98 02/28/22 22:51 36.5 C 63 18 131/75 97 Laboratory Results 03/01/22 03/01/22 Range/Units 07:46 07:46 WBC 14.19 H (4.8-10.8) K/uL RBC 3.66 L (4.2-5.4) M/uL Hgb 11.3 L (12.0-16.0) g/dL Hct 33.5 L (37-47) % MCV 91.5 (80-100) fL MCH 30.9 (25-34) pg MCHC 33.7 (32-36) g/dL RDW Std Deviation 46.8 H (36.4-46.3) fL RDW Coeff of Yo 14.0 (11.5-14.5) % Plt Count 216 (130-400) K/uL MPV 10.5 H (7.4-10.4) fL Sodium 138 (136-145) mmol/L Potassium 4.3 (3.5-5.1) mmol/L Chloride 109 H (98-107) mmol/L Carbon Dioxide 25 (21-32) mmol/L Anion Gap 4 (3-11) BUN 25 H (6-23) mg/dl Creatinine 1.03 (0.6-1.2) mg/dl Est Cr Clr Drug Dosing 48.4 ml/min Est GFR ( Amer) 62.0 ml/min Est GFR (Non-Af Amer) 53.5 ml/min BUN/Creatinine Ratio 24.3 H (10-20) Glucose 112 H (70-99(Fasting)) mg/dl Calcium 8.5 (8.5-10.1) mg/dl Medications Administered Current Inpatient Medications Acetaminophen (Acetaminophen 500 Mg Tab) 1,000 mg PO Q8 AMANDA Stop: 03/30/22 13:59 Last Admin: 03/01/22 06:02 Dose: 1,000 mg Documented by: Al Hydrox/Mg Hydrox/Simethicone (Aluminum/Magnesium Susp 30 Ml Udc) 15 ml PO Q4H PRN PRN Reason: Heartburn Stop: 03/30/22 11:04 Apixaban (Apixaban 2.5 Mg Tab) 2.5 mg PO BID AMANDA Stop: 03/30/22 20:59 Last Admin: 02/28/22 20:46 Dose: Not Given Documented by: Atorvastatin Calcium (Atorvastatin 10 Mg Tab) 10 mg PO PM AMANDA Stop: 03/30/22 20:59 Last Admin: 02/28/22 20:45 Dose: 10 mg Documented by: Bisacodyl (Bisacodyl 10 Mg Supp) 10 mg OH DAILY PRN PRN Reason: Constipation Stop: 03/30/22 11:04 Celecoxib (Celebrex 200 Mg Cap) 200 mg PO BID AMANDA Stop: 03/31/22 08:59 Last Admin: 03/01/22 08:35 Dose: 200 mg Documented by: Cyanocobalamin (Cyanocobalamin (B-12) 2,500 Mcg Tablet) 2,500 mcg SL QAM AMANDA Stop: 03/31/22 08:59 Last Admin: 03/01/22 08:33 Dose: 2,500 mcg Documented by: Diphenhydramine HCl (Diphenhydramine Capsule 25 Mg Cap) 25 mg PO Q8H PRN PRN Reason: Itching Stop: 03/30/22 11:04 Docusate Sodium (Docusate Sodium 100 Mg Cap) 100 mg PO BID AMANDA Stop: 03/30/22 20:59 Last Admin: 03/01/22 08:33 Dose: 100 mg Documented by: Hydromorphone HCl (Hydromorphone Inj 0.5 Mg/0.5 Ml Syr) 0.5 mg IV Q3H PRN PRN Reason: Pain or Pre PT Stop: 03/14/22 11:04 Lactated Ringer's (Lr) 1,000 mls @ 15 mls/hr IV .Q24H [facility] Stop: 03/30/22 05:59 Last Admin: 03/01/22 04:37 Dose: Not Given Documented by: Cefazolin Sodium (Ancef 2000mg) 2,000 mg in 15 mls @ 3.75 mls/min IV Q8H [facility]; Protocol Last Admin: 02/28/22 23:41 Dose: 3.75 mls/min Documented by: Promethazine HCl 12.5 mg/ (Sodium Chloride) 50.5 mls @ 202 mls/hr IV Q6H PRN PRN Reason: Nausea And Vomiting Stop: 03/30/22 13:13 Ketorolac Tromethamine (Ketorolac Tromethamine 15 Mg/Ml Vial) 15 mg IV Q6H PRN PRN Reason: Breakthrough Pain Lisinopril (Lisinopril 20 Mg Tab) 20 mg PO [facility] Stop: 03/31/22 08:59 Last Admin: 03/01/22 08:34 Dose: 20 mg Documented by: Magnesium Hydroxide (Magnesium Hydroxide Susp 30 Ml Udc) 30 ml PO Q6H PRN PRN Reason: Constipation Stop: 03/30/22 11:04 Metoclopramide HCl (Metoclopramide Hcl Inj 5 Mg/Ml 2 Ml Vial) 10 mg IV Q6H PRN PRN Reason: Nausea And Vomiting Stop: 03/30/22 11:04 Metoprolol Succinate (Metoprolol Succ 50mg Ext Rel Tab) 50 mg PO [facility] Stop: 03/31/22 08:59 Last Admin: 03/01/22 08:34 Dose: 50 mg Documented by: Multivitamins (Multivitamin Tab) 1 tab PO [facility] Stop: 03/31/22 08:59 Last Admin: 03/01/22 08:35 Dose: 1 tab Documented by: Naloxone HCl (Naloxone Hcl 0.4 Mg/1 Ml Vial/Carp) 0.1 mg IV Q5M PRN PRN Reason: Oversedation/Resp Depression Stop: 03/30/22 11:04 Oxycodone HCl (Oxycodone Hcl Ir 5 Mg Tab (Immediate Release)) 5 - 10 mg PO Q4H PRN PRN Reason: Pain or Pre PT Stop: 03/14/22 11:04 Last Admin: 03/01/22 08:35 Dose: 10 mg Documented by: Sennosides (Senna 8.6 Mg Tab) 17.2 mg PO [facility] Stop: 03/30/22 20:59 Last Admin: 02/28/22 20:46 Dose: 17.2 mg Documented by: Vitamin D (Cholecalciferol 1,000 Units 25 Mcg Tab) 2,000 units PO [facility] Stop: 03/31/22 08:59 Last Admin: 03/01/22 08:34 Dose: 2,000 units Documented by:
[2022-03-01] MEDS: APIXABAN 2.5 MG TAB PO SCH ×2 (09:23→11:55)
--- NOTE | 2022-03-01 10:18 | Orthopedic Progress Note ---
Date of Service March 01, 2022 Assessment & Plan (1) Osteoarthritis of left knee: Plan: POD 1 s/p Left TKA PT/OT protocols. WBAT. DVT prophylaxis - Apixaban bid, SCD's, ROD kerne Pain management as written Labs pending DC planning - CM to talk to pt this AM. Planning for HH services upon DC. Admission and Anticipated Discharge Date Admission Date: February 28, 2022 Subjective Postop day 2 Patient sitting at the edge of the bed finishing up her occupational therapy session. Patient therapist said she did very well and ambulating to the [facility] and taking care of herself. Patient states she has not had PT yet. Results & Data ([facility]) Vital Signs (Past 12 Hours) Vital Signs Temp Pulse Resp BP Pulse Ox 03/01/22 07:13 36.6 C 62 16 108/64 97 03/01/22 03:24 36.6 C 68 18 123/68 98 02/28/22 22:51 36.5 C 63 18 131/75 97
== END 2022-03-01 15:13 | disposition home health service (06) ==
LOC: ASU 05:04 → 3E 05:04